=== PATIENT | male | born 1955 | race Caucasian/White ===

== ENCOUNTER → 2018-08-18 09:48 | Outpatient (CLI) | payer MEDICAID, SELFPAY ==
--- NOTE | 2018-08-18 09:53 | XR_ITS ---
XR shoulder RT min 2V HISTORY: ITS.REASON: Right SHOULDER AND ARM PAIN ORDERING PHYSICIAN: Danyel Chapa PATIENT AGE: 62 years Comparison: None FINDINGS: Mild osteoarthritic changes are present at the glenohumeral joint. Subchondral cystic changes are present within the glenoid. No fracture or dislocation. No lytic or blastic change. IMPRESSION: Mild osteoarthritis of the glenohumeral joint
--- NOTE | 2018-08-18 09:53 | XR_ITS ---
EXAM: XR cervical spine 5V HISTORY: Right neck and shoulder pain ITS.REASON: RT SHOULDER AND ARM PAIN ORDERING PHYSICIAN: Danyel Chapa PATIENT AGE: 62 years COMPARISON: None FINDINGS: Degenerative disc disease is present at C5-C6 with small endplate osteophytes. Mild foraminal narrowing is present bilaterally at C5-C6. No fracture or dislocation. No lytic or blastic change. IMPRESSION: Degenerative changes as described above
== END ==
PROVIDERS: PCP Internal Medicine; Visit Provider Internal Medicine
DX: M25.511 Pain in right shoulder (principal); M79.621 Pain in right upper arm
CPT/HCPCS: 72050; 73030

== ENCOUNTER 2019-11-30 08:55 | Emergency (ER) | payer OTHER, SELFPAY ==
[2019-11-30 08:55] VITALS: BP 160/74; PULSE 65; RESP 17; TEMP 36.4; O2SAT 100; BMI 32.1
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
--- NOTE | 2019-11-30 09:00 | PC.NURSE ---
at bedside assessing pt, removed ccollar
--- NOTE | 2019-11-30 09:04 | PC.NURSE ---
Pt to rad.
--- NOTE | 2019-11-30 09:09 | PC.NURSE ---
Pt returned from rad.
--- NOTE | 2019-11-30 09:11 | PC.NURSE ---
[facility] at bedside at this time.
[2019-11-30 09:53] VITALS: BP 132/71; PULSE 60; O2SAT 99
[2019-11-30 10:08] VITALS: BP 146/100; PULSE 77; RESP 17; TEMP 36.7; O2SAT 100
[2019-11-30 10:09] VITALS: BP 131/68; PULSE 66; O2SAT 98
== END 2019-11-30 10:25 | disposition home or self-care (01) ==
PROVIDERS: Emergency Provider Emergency Medicine; PCP Internal Medicine
DX: S20.212A Contusion of left front wall of thorax, initial encounter (principal); S20.211A Contusion of right front wall of thorax, initial encounter; V43.52XA Car driver injured in collision with other type car in traffic accident, initial encounter; Y92.488 Other paved roadways as the place of occurrence of the external cause
CPT/HCPCS: 71046; 99282

== ENCOUNTER 2020-01-23 16:52 | Emergency (ER) | payer OTHER, SELFPAY ==
[2020-01-23 17:13] VITALS: BP 130/65; PULSE 63; RESP 18; TEMP 36.6; O2SAT 99; BMI 31.8
[2020-01-23 17:19] VITALS: BP 130/65; PULSE 63; RESP 18; TEMP 36.6; O2SAT 99; BMI 31.8
--- NOTE | 2020-01-23 17:36 | HMH.EDUTC ---
[facility] [place] Disposition Clinical Impression: Sinusitis Qualifiers: Sinusitis location: maxillary Chronicity: acute Recurrence: non-recurrent Qualified Code(s): J01.00 - Acute maxillary sinusitis, unspecified Disposition: Home, Self-Care Condition on Discharge: Good Instructions: DI for Sinusitis, Sinusitis Additional Instructions: Start antibiotic patient to take as ordered for a full length of time even if you feel better. Sinus infections do not get better overnight. It may take 2-3 days to notice much improvement so be sure to use conservative measures as discussed for symptoms. Flonase 1 spray each nostril daily to help with nasal congestion, sinus and ear pressure/information Increase fluids Humidifier/vaporizer as needed Tylenol and ibuprofen as needed for fever or pain. If symptoms do not improve or get worse return or be seen in the ER Follow-up with primary care this week Prescriptions: Fluticasone Propionate [Flonase 50mcg nasal spray 16gm] 1 spr NS DAILY 14 Days #1 bottle Prescription Printed Azithromycin [Zithromax 250mg tab] 250 mg PO DIRECTED #6 tab Prescription Printed Referrals: Danyel Chapa [Primary Care Provider] - Time of Disposition: 18:29 Medical Decision Making - El Inquiry Pt receiving controlled substance: No Vital Signs: 01/23/20 17:13 01/23/20 17:19 Temperature 97.9 F 97.9 F Temperature Source Oral Oral Pulse Rate [Left Radial] 63 63 Respiratory Rate 18 18 Blood Pressure [Left Arm] 130/65 130/65 Blood Pressure Mean [Left Arm] 86 86 Blood Pressure Source [Left Arm] Automatic Cuff Automatic Cuff Blood Pressure Position [Left Arm] Sitting Sitting 02 Sat by Pulse Oximetry 99 99 Oxygen Delivery Method Room Air Room Air Orders (Tests/Meds): ORDERS Category Date Time Status Covid-19 Nasal PCR ([facility]) Routine Lab 01/23/20 17:30 Received [facility] [place] HPI - General Chief complaint: [facility] Stated complaint: Sore throat, congstion, weakness Time Seen by Provider: 01/23/20 17:36 Mode of Arrival: Ambulatory Source of Information: Patient Limitations: No Limitations Description of Symptoms (Recalled from Triage Doc. by RN): PATIENT C/O CONGESTION, SORE THROAT AND NASAL DRAINAGE HEENT Symptoms (Recalled from RN notes): Yes Resp Symptoms (Recalled from RN notes): No Skin Symptoms (Recalled from RN notes): No MS Symptoms (Recalled from RN notes): No Functional Status (Recalled from RN notes): WNL - History of Present Illness Provider Complaint: 64 yr old male presents for sinus pressure, sinus congestion, cough and green nasal drainage for 4 days - Related Data Home Medications Medication Instructions Recorded Confirmed Metformin HCl 500 mg PO BID 03/02/18 11/20/18 Aspirin [Aspirin 81mg chewable 81 mg PO DAILY 11/15/18 11/20/18 tab] Atorvastatin Calcium [Atorvastatin 20 mg PO HS 11/15/18 11/20/18 20mg Tab] lisinopriL [Lisinopril 10mg Tab] 10 mg PO DAILY 11/15/18 11/20/18 paroxetine HCl 20 mg tablet 20 mg PO DAILY 11/20/18 11/20/18 tamsulosin 0.4 mg capsule 0.4 mg PO DAILY 11/20/18 11/20/18 Previous Rx's Medication Instructions Recorded Azithromycin [Zithromax 250mg 250 mg PO DIRECTED #6 tab 01/23/20 tab] Fluticasone Propionate [Flonase 1 spr NS DAILY 14 Days #1 bottle 01/23/20 50mcg nasal spray 16gm] Allergies Allergy/AdvReac Type Severity Reaction Status Date / Time Penicillins Allergy Verified 11/20/18 10:09 - Worker's Comp Is this a Worker's Comp case?: No [facility] History - Hepatitis A Screen Drug use history?: No High risk sexual behaviors?: No History of sexually transmitted infection?: No Currently employed?: No Childcare worker?: No Do you have indoor plumbing?: Yes Do you have electricity?: Yes Attestation statement:: This patient has been screened for Hepatitis A risk factors. I have reviewed the patient's past medical history: Yes Medical History: Reports:: Diabetes Mellitus Type 2, Hyperli
[2020-01-23 18:10] VITALS: BP 130/65; PULSE 63; RESP 18; TEMP 36.6; O2SAT 99
[2020-01-26 09:14] LABS: UTC Strep Screen (Rapid) Negative (Negative)
== END 2020-01-23 18:31 | disposition home or self-care (01) ==
PROVIDERS: Emergency Provider Nurse Practitioner Family; PCP Internal Medicine
DX: J01.00 Acute maxillary sinusitis, unspecified (principal); Z20.828 Contact with and (suspected) exposure to other viral communicable diseases; E11.9 Type 2 diabetes mellitus without complications; I10 Essential (primary) hypertension; E78.5 Hyperlipidemia, unspecified; Z79.899 Other long term (current) drug therapy
CPT/HCPCS: 87880; 99202; U0003

== ENCOUNTER 2020-04-11 09:46 | Emergency (ER) | payer OTHER, SELFPAY ==
[2020-04-11 09:47] VITALS: BP 157/94; PULSE 77; RESP 16; TEMP 37.4; O2SAT 96; BMI 31.5
--- NOTE | 2020-04-11 09:54 | ECG_ITS ---
APPROVED REPORT Exam: Resting ECG HR:71 bpm ECG Measurements Heart Rate 71 AXES WA 148 P 20 QRSd 82 QRS 7 QT 378 T 41 QTc 410 Conclusion Normal sinus rhythm Normal ECG Electronically signed by : Khris Thayer, 04/12/2020 19:57:55
[2020-04-11 10:00] VITALS: BP 175/91; PULSE 70; RESP 16; O2SAT 97
--- NOTE | 2020-04-11 10:04 | XR_ITS ---
PROCEDURE: XR CHEST PORTABLE CLINICAL HISTORY: WEAKNESS COMPARISON: CR CXR2V XR chest 2V from 03/02/2018 CR CXR2V XR chest 2V from 03/02/2018 CR XR CHEST 2V from 11/30/2019 FINDINGS: The cardiomediastinal silhouette and pulmonary vascularity are within normal limits. This is a slightly poor inspiration however there are subtle ill-defined hazy opacities in both perihilar regions and lower lobes which were not seen on previous chest film 11/30/2019. Minimal developing pneumonic infiltrates cannot be excluded there is no pleural fluid. There monitor lines overlying the chest. IMPRESSION: Question developing minimal bilateral perihilar and lower lobe hazy pneumonic infiltrates and certainly Covid 19 is a possibility Dictated by: Dr. Kilo Steve MD 04/11/2020 10:42 Dr. Kilo Steve MD in [place] 04/11/2020 10:42
--- NOTE | 2020-04-11 10:29 | HMH.EDGENADL ---
ED Disposition Clinical Impression: Pneumonia due to COVID-19 virus Disposition: Home, Self-Care Condition on Discharge: Good Additional Instructions: Contact your primary care today to provide and establish follow-up for 2 days reevaluation via telehealth. Monitor pulse oximetry at home and use Tylenol and ibuprofen for body aches and fever. Use the Zofran as needed for nausea and finish the steroids as prescribed. Prescriptions: dexAMETHasone [Dexamethasone] 6 mg PO DAILY 3 Days #3 tab Transmission Status: Pending to [id number] Ondansetron [Zofran 4mg ODT] 4 mg PO TIDP PRN 3 Days #9 tab PRN Reason: Nausea Transmission Status: Pending to [id number] Referrals: Danyel Chapa [Primary Care Provider] - Time of Disposition: 11:27 - Critical Care Critical Care Time: No Attestation: On 04/11/20, the high probability of a clinically significant, sudden or life threatening deterioration of the following system(s) required my full and direct attention, intervention and personal management. The time I documented below is in addition to time spent performing reported procedures but includes the following listed in this critical care notation. Medical Decision Making - Medical Records Medical records reviewed: Yes: I reviewed the patient's medical records. - El Inquiry Pt receiving controlled substance: No Vital Signs: 04/11/20 09:47 04/11/20 10:00 04/11/20 10:30 Temperature 99.3 F Temperature Source Oral Pulse Rate [Radial] 77 70 73 Respiratory Rate 16 16 18 Blood Pressure [Right Arm] 157/94 H 175/91 H 145/87 H Blood Pressure Mean [Right Arm] 115 119 106 Blood Pressure Source [Right Arm] Automatic Cuff Automatic Cuff Blood Pressure Position [Right Arm] Sitting Sitting Sitting 02 Sat by Pulse Oximetry 96 97 95 Oxygen Delivery Method Room Air Room Air Room Air - Lab Data Lab Results 04/11/20 10:06: WBC 3.2 L, RBC 5.35, Hgb 16.7, Hct 48.9, MCV 91.5, MCH 31.2, MCHC 34.2, RDW 13.4, Plt Count 91 L, MPV 8.4, Neut % (Auto) 72.0, Lymph % (Auto) 20.7, [place] % (Auto) 6.6, Eos % (Auto) 0.2, Baso % (Auto) 0.4, Neut # (Auto) 2.3, Lymph # (Auto) 0.7, [place] # (Auto) 0.2, Eos # (Auto) 0.0, Baso # (Auto) 0.0 04/11/20 10:06: Sodium 132 L, Potassium 4.1, Chloride 96 L, Carbon Dioxide 26, Anion Gap 14.1, BUN 15, Creatinine 0.70, Estimated Creat Clear 108, Estimated GFR 114, Est GFR ( Amer) 137, Glucose 186 H, Calcium 9.8, Total Bilirubin 1.2, AST 62 H, ALT 59, Alkaline Phosphatase 134 H, Total Protein 8.1, Albumin 4.4, Globulin 3.7 H, Albumin/Globulin Ratio 1.2 04/11/20 10:06: SARS-CoV-2 IgG Ab (Rapid) Positive A, SARS-CoV-2 IgM Ab (Rapid) Positive A 04/11/20 10:06: Troponin I < 0.01 04/11/20 10:37: Urine Color Yellow, Urine Appearance Clear, Urine pH 6.0, Ur Specific [place] 1.015, Urine Protein Negative, Urine Glucose (UA) 3+, Urine Ketones 1+, Urine Blood Negative, Urine Nitrate Negative, Urine Bilirubin Negative, Urine Urobilinogen 1.0, Ur Leukocyte Esterase Negative, Urine WBC 3-5, Ur Squamous Epith Cells 3-5 Result diagrams: 04/11/20 10:06 04/11/20 10:06 Orders (Tests/Meds): ED MEDICATIONS Generic Name Dose Route Start Last Admin Trade Name Freq PRN Reason Stop Dose Admin Lactated Ringer's 500 mls @ 999 mls/hr 04/11/20 10:30 04/11/20 10:35 Lactated Ringer's 1000 Ml Bag IV 04/11/20 11:00 999 mls/hr .Q31M LILLI Administration ORDERS Category Date Time Status Covid-19 Nasal PCR Sendout P&C Stat Lab 04/11/20 11:00 Received Troponin I Q3H Lab 04/11/20 13:30 Ordered Troponin I Q3H Lab 04/11/20 16:30 Ordered - Radiology Data #1 Image(s): Chest Image Reviewed: Yes I reviewed the patient's radiology image Preliminary Findings: Abnormal Diffuse interstitial infiltrates worse in the lower airways consistent with viral/atypical pneumonia. No bony abnormality or pneumothorax. - ECG Data Tracing #1 I reviewed this ECG and interpreted as documented
[2020-04-11 10:30] VITALS: BP 145/87; PULSE 73; RESP 18; O2SAT 95
[2020-04-11 10:30] LABS: Chloride 96 mmol/L (98-107); Potassium 4.1 mmoL/L (3.5-5.1); Sodium 132 mmol/L (136-145)
[2020-04-11 10:32] LABS: Alanine Aminotransferase 59 U/L (12-78); Alkaline Phosphatase 134 U/L (38-126); Aspartate Amino Transferase 62 U/L (17-59); Basophils % 0.4 % (0.1-2.0); Bilirubin,Total 1.2 mg/dl (0.2-1.3); Blood Urea Nitrogen 15 mg/dl (9-20); Creatinine Clearance Estimated 108 mL/min (50-200); Eosinophils % 0.2 % (0.1-12.0); Estimated Glomerular Filt Rate 114 ml/min (>60); GFR (African American) 137 ML/MIN (>60); Hematocrit 48.9 % (42.0-52.0); Hemoglobin 16.7 g/dL (14.1-18.0); Lymphocytes # 0.7 K/mm3 (0.7-4.5); Lymphocytes % 20.7 % (10-50); Mean Corpuscular HGB Conc 34.2 g/dL (31.8-35.4); Mean Corpuscular Hemoglobin 31.2 pg (27.0-31.2); Mean Corpuscular Volume 91.5 fl (80-94); Mean Platelet Volume 8.4 fl (7.4-10.4); Monocytes # 0.2 K/mm3 (0.1-1.0); Monocytes % 6.6 % (1.7-9.3); Neutrophils # 2.3 K/mm3 (1.8-7.8); Platelet Count 91 K/mm3 (142-424); Red Blood Count 5.35 M/mm3 (4.60-6.20); Red Cell Distribution Width 13.4 % (11.5-17.5); White Blood Count 3.2 K/mm3 (4.8-10.8)
[2020-04-11 10:33] LABS: Albumin Level 4.4 g/dl (3.5-5.0); Albumin/Globulin Ratio 1.2 (1.1-1.8); Anion Gap 14.1 mEq/L (5-15); Calcium 9.8 mg/dl (8.4-10.2); Carbon Dioxide 26 mmol/L (22.0-30.0); Globulin 3.7 g/dL (1.3-3.2); Glucose 186 mg/dl (74-100); Total Protein,Serum 8.1 g/dl (6.3-8.2)
[2020-04-11 10:55] LABS: Microscopic, Urine URINE MICROSCOPIC (MICROSCOPIC)
[2020-04-11 10:57] LABS: Coronavirus 19 IgG Antibody Positive (Negative); Coronavirus 19 IgM Antibody Positive (Negative)
[2020-04-11 10:57] LABS: Appearance,Urine CLEAR (Clear); Bilirubin,Urine Negative (Negative); Blood, Urine Negative (Negative); Color,Urine YELLOW (Yellow); Glucose,Urine (UA) 3+ (Negative); Ketones,Urine 1+ (Negative); Leukocyte Esterase,Urine Negative (Negative); Nitrate,Urine Negative (Negative); Protein,Urine Negative (Negative); Specific Gravity, Urine 1.015 (1.005-1.030)
[2020-04-11 11:00] VITALS: BP 155/97; PULSE 66; RESP 17; O2SAT 87
[2020-04-11 11:03] LABS: Troponin I < 0.01 ng/ml (0.00-0.034)
[2020-04-11 11:30] VITALS: BP 148/92; PULSE 66; RESP 16; O2SAT 87
[2020-04-11 12:03] VITALS: BP 142/78; PULSE 78; RESP 16; TEMP 36.6; O2SAT 98
[2020-04-12 09:11] LABS: Covid-19 Nasal PCR Sendout P&C POSITIVE
== END 2020-04-11 12:04 | disposition home or self-care (01) ==
PROVIDERS: Emergency Provider Student in an Organized Health Care Education/Training Program; PCP Internal Medicine
DX: U07.1 COVID-19 (principal); J12.89 Other viral pneumonia; E11.9 Type 2 diabetes mellitus without complications; E78.5 Hyperlipidemia, unspecified; I10 Essential (primary) hypertension; Z88.0 Allergy status to penicillin; Z79.84 Long term (current) use of oral hypoglycemic drugs
CPT/HCPCS: 71045; 80053; 81001; 84484; 85025; 86328; 93005; 96365; 99284; U0004

== ENCOUNTER 2020-04-13 10:54 | Outpatient (CLI) | payer OTHER, SELFPAY ==
[2020-04-13] VITALS (10 sets, daily range): BP systolic 128–151; BP diastolic 80–86; PULSE 57–67; RESP 16; TEMP 36.3–37.1; O2SAT 97–98
--- NOTE | 2020-04-13 14:27 | PC.NURSE ---
tolerated infusion well. left in stable condition
== END 2020-04-13 14:37 | disposition home or self-care (01) ==
PROVIDERS: PCP Internal Medicine; Visit Provider Internal Medicine
DX: U07.1 COVID-19 (principal)
CPT/HCPCS: 96365

== ENCOUNTER 2020-04-30 11:24 | Emergency (ER) | payer OTHER, SELFPAY ==
[2020-04-30 11:25] VITALS: BP 169/94; PULSE 72; RESP 16; TEMP 36.7; O2SAT 97; BMI 30.7
--- NOTE | 2020-04-30 12:11 | HMH.EDGENADL ---
ED Disposition Clinical Impression: Lumbago Disposition: Home, Self-Care Condition on Discharge: Good Additional Instructions: You were seen on an emergency basis. It is very important that you follow up with your primary care provider and/or specialist as we discussed within 2 days. All labs and imaging were obtained and interpreted here to rule out life threatening emergencies, but your final results should be reviewed by your primary doctor at your follow up appointment. Please return to the emergency department if any of your symptoms worsen, or if they do not improve as we discussed. Referrals: Danyel Chapa [Primary Care Provider] - - Critical Care Critical Care Time: No Attestation: On 04/30/20, the high probability of a clinically significant, sudden or life threatening deterioration of the following system(s) required my full and direct attention, intervention and personal management. The time I documented below is in addition to time spent performing reported procedures but includes the following listed in this critical care notation. Medical Decision Making - Medical Records Medical records reviewed: Yes: I reviewed the patient's medical records. - El Inquiry Pt receiving controlled substance: No Vital Signs: 04/30/20 11:25 Temperature 98.1 F Temperature Source Oral Pulse Rate [Right] 72 Respiratory Rate 16 Blood Pressure [Right Arm] 169/94 H Blood Pressure Mean [Right Arm] 119 Blood Pressure Source [Right Arm] Automatic Cuff Blood Pressure Position [Right Arm] Sitting 02 Sat by Pulse Oximetry 97 Oxygen Delivery Method Room Air Orders (Tests/Meds): ED MEDICATIONS Generic Name Dose Route Start Last Admin Trade Name Freq PRN Reason Stop Dose Admin Methocarbamol 500 mg 04/30/20 21:00 04/30/20 12:29 Methocarbamol 500mg Tablet PO 05/30/20 20:59 500 mg BID LILLI Administration Discontinued Medications Generic Name Dose Route Start Last Admin Trade Name Freq PRN Reason Stop Dose Admin Hydrocodone Bitart/Acetaminophen 1 tab 04/30/20 11:34 04/30/20 12:29 Hydrocodone/Apap 5/325 Mg Tablet PO 04/30/20 11:35 1 tab ONCE ONE Administration Medical Decision Narrative: 64-year-old male presenting with acute back pain after lifting a refrigerator. Nonfocal, neuro intact, atraumatic. Full weightbearing and ambulating at baseline. No cauda equina red flags. No infectious signs or symptoms. Symptoms resolved after [place] and Robaxin here. Patient will take NSAIDs at home for pain control and follow-up with PCP. He is anxious to go home. He has been ambulating around the emergency department at baseline on his cell phone and appears to be pain-free and states that he is as well. No further work-up indicated here including imaging today General Adult HPI - General Chief complaint: PAIN Stated complaint: ao 04/30 back pain Time Seen by Provider: 04/30/20 11:30 Mode of Arrival: Ambulatory Limitations: No Limitations Description of Symptoms (Recalled from ER Triage Doc. by RN): PT was lifting a fridge when he felt a pop in his lower back. Advises he is now having pain - History of Present Illness HPI narrative: This is a 64-year-old male with a history of hypertension who presents 20 minutes after sustaining right low back pain when attempting to lift a refrigerator. He reports the pain is localized and spastic. He did not take any medication for this. He remained ambulatory and full weightbearing. No other injury sustained. Nothing makes the pain worse. No fever, chills, nausea, vomiting, urinary symptoms, loss of bowel or bladder, saddle anesthesia - Related Data Home Medications Medication Instructions Recorded Confirmed Metformin HCl 500 mg PO BID 03/02/18 11/20/18 Aspirin [Aspirin 81mg chewable 81 mg PO DAILY 11/15/18 11/20/18 tab] Atorvastatin Calcium [Atorvastatin 20 mg PO HS 11/15/18 11/20/18 20mg Tab] lisinopriL [Lisinopril 10mg T
[2020-04-30 13:26] VITALS: BP 151/80; PULSE 67; RESP 16; TEMP 36.9; O2SAT 96
== END 2020-04-30 13:28 | disposition home or self-care (01) ==
PROVIDERS: Emergency Provider Physician Assistant; PCP Internal Medicine
DX: M54.5 Low back pain (principal); X50.0XXA Overexertion from strenuous movement or load, initial encounter; Y92.019 Unspecified place in single-family (private) house as the place of occurrence of the external cause; I10 Essential (primary) hypertension; E78.5 Hyperlipidemia, unspecified; E11.9 Type 2 diabetes mellitus without complications; Z79.899 Other long term (current) drug therapy; Z88.0 Allergy status to penicillin
CPT/HCPCS: 99281

== ENCOUNTER → 2020-05-11 10:30 | Outpatient (CLI) | payer OTHER, SELFPAY ==
--- NOTE | 2020-05-11 10:41 | XR_ITS ---
PROCEDURE: XR LUMBAR SPINE MIN 4V CLINICAL INDICATION: LOW BACK PAIN COMPARISON: CT [id number] CT abdomen pelvis wo/w con from 11/15/2018 CR XR CHEST 2V from 11/30/2019 FINDINGS: There is normal alignment. There is moderate anterior wedging of L1 with loss of height anteriorly of approximately 50 percent. This has developed since a previous lateral chest radiograph of 11/30/2019. Degenerative disc disease is present at T12-L1 L1-L2 L2-L3 and L5-S1. There is generalized osteopenia. There are mild degenerative changes in the SI joints. Other findings:None. IMPRESSION: 50 percent wedge compression change of L1 which has developed since 11/30/2019 with underlying degenerative changes Dictated by: Fernando Shoemaker MD 05/11/2020 11:33 Fernando Shoemaker MD in [place] 05/11/2020 11:33
== END ==
PROVIDERS: PCP Internal Medicine; Visit Provider Internal Medicine
DX: M54.5 Low back pain (principal)
CPT/HCPCS: 72110

== ENCOUNTER → 2020-05-23 15:08 | Outpatient (CLI) | payer OTHER, SELFPAY ==
--- NOTE | 2020-05-23 15:18 | MR_ITS ---
PROCEDURE: MR LUMBAR SPINE WO CON CLINICAL INDICATION: LOW BACK PAIN HEARD A POP X3WKS AGO WHILE LIFTING A REFRIGERATOR AND HAS HAD RT SIDED LBP SINCE. PRIOR X-RAY 05-11-20 COMPARISON: CT [id number] CT abdomen pelvis wo/w con from 11/15/2018 CR XR LUMBAR SPINE MIN 4V from 05/11/2020 TECHNIQUE: Standard multiplanar multiecho sequences are performed without contrast. 3-D MIP and myelographic images are also rendered and reviewed FINDINGS: T12-L1: Acute wedge compression fracture is present involving the L1 vertebral body. There is minimal retropulsion along the posterior superior aspect L1 by approximately 3 mm. There is loss of height centrally and anteriorly by approximately 40 percent. The L1-L2: Mild degenerative disc disease with minimal bulging disc. L2-L3: Mild degenerative disc disease with minimal bulging disc. L3-L4: Small annular fissure posteriorly. Mild facet and ligamentum hypertrophy with mild right lateral recess narrowing. L4-5: Minimal bulging disc with facet and ligamentum hypertrophy with mild bilateral lateral recess narrowing slightly greater on the right. L5-S1: Mild concentric bulging disc with a small broad-based central/left paracentral and foraminal disc protrusion along with facet and ligamentum hypertrophy with severe right-sided foraminal narrowing and mild left-sided foraminal narrowing. IMPRESSION: 1. Acute wedge compression fracture of L1 with loss of height anteriorly of approximately 40 percent and minimal retropulsion of the posterior superior aspect of L1. 2. Mild multilevel lumbar spondylosis with degenerative disc disease bulging disc and facet and ligamentum hypertrophy with lateral recess and foraminal narrowing. There is a small broad-based central/left paracentral disc protrusion at L5-S1. Please see above for detailed description at each level. Dictated by: Fernando Shoemaker MD 05/24/2020 12:11 Fernando Shoemaker MD in [place] 05/24/2020 12:11
== END ==
PROVIDERS: PCP Internal Medicine; Visit Provider Internal Medicine
DX: M54.5 Low back pain (principal)
CPT/HCPCS: 72148; 76376

== ENCOUNTER → 2020-05-30 08:50 | Outpatient (POV) | payer OTHER, SELFPAY ==
[2020-05-30 09:27] VITALS: BP 142/77; PULSE 85; RESP 18; TEMP 36.8; O2SAT 98; BMI 24.5
--- NOTE | 2020-05-30 09:49 | HMH.PMCON ---
Assessment and Plan (1) Back pain Status: Chronic Qualifiers: Back pain location: low back pain Category: Medical Code(s): M54.9 - Dorsalgia, unspecified (2) Compression fracture Status: Acute Category: Medical (3) Osteoporosis Status: Chronic Qualifiers: Presence of current pathological fracture: with current pathological fracture Category: Medical Code(s): M81.0 - Age-related osteoporosis without current pathological fracture - Assessment and plan all Dx Assessment and Plan for all problems:: Patient was fitted for a back brace. We will set him up for kyphoplasty to help with his fracture and his pain. I discussed the procedure with him and explained that he would like to move forward. He has been instructed to call the office if he has any issues prior to his next appointment. Dr. Moran has reviewed this note and agrees with this plan of care. This note was dictated using voice recognition software and may contain errors or omissions HPI - Data of Consult Consult date: 05/30/20 Requesting Physician: Kalani Eagle APRN Primary Care Provider: Danyel Chapa - Consult Narrative Reason for consult: Compression fracture History of present illness: Mr. Rey is a 64 year old male who presents today for consultation in regards to his recent compression fracture. Patient had increased back pain about a month ago. Patient felt a pop in his lower back at this time. Patient has a acute L1 compression fracture. Patient is interested in a kyphoplasty. Patient has quite a bit of pain. He has tried medications with no relief. He is not on any anticoagulation therapy. He has a history of osteoporosis. He rates his pain today 4 out of 10 when he is not active but it can increase With activity CC: Kalani Eagle APRN [facility] History I have reviewed the patient's past medical history: Yes Medical History: Reports:: Diabetes Mellitus Type 1, Hyperlipidemia, Hypertension Denies:: Cancer, Diabetes Mellitus Type 2, MRSA *Have you ever received a pneumonia vaccine?: Yes *Have you received a flu vaccine this season?: No Other Medical History: Reports: Arthritis Amputation: No Fractures: No - *Social History Smoking Status: Never smoker Tobacco Type: cigarettes Alcohol Intake: never Substance Use Type: denies use *Occupational Status:: retired Housing: house Household Members: other *Travel in the last 8 weeks: None Family Hx:: Unable to obtain Review of Systems - Review of Systems ROS General: no recent weight change, no fever, no sleep disturbances Respiratory: no cough, no shortness of air, no recurring pulmonary infections Cardiovascular/Peripheral Vascular: No chest pain, No palpitations, no edema, no shortness of breath. Gastrointestinal: no new onset incontinence, normal bowel movements reported Genitourinary: no new onset incontinence Musculoskeletal: Back pain Psychiatric: normal mood/ affect Neurological: [denies new onset weakness in extremities], [denies new onset balance issues] Meds Home Medications Medication Instructions Recorded Confirmed Type Metformin HCl 500 mg PO BID 03/02/18 11/20/18 History Aspirin [Aspirin 81mg chewable 81 mg PO DAILY 11/15/18 11/20/18 History tab] Atorvastatin Calcium [Atorvastatin 20 mg PO HS 11/15/18 11/20/18 History 20mg Tab] lisinopriL [Lisinopril 10mg Tab] 10 mg PO DAILY 11/15/18 11/20/18 History paroxetine HCl 20 mg tablet 20 mg PO DAILY 11/20/18 11/20/18 History tamsulosin 0.4 mg capsule 0.4 mg PO DAILY 11/20/18 11/20/18 History Azithromycin [Zithromax 250mg 250 mg PO DIRECTED #6 tab 01/23/20 Rx tab] Fluticasone Propionate [Flonase 1 spr NS DAILY 14 Days #1 bottle 01/23/20 Rx 50mcg nasal spray 16gm] Ondansetron [Zofran 4mg ODT] 4 mg PO TIDP PRN 3 Days #9 tab 04/11/20 Rx dexAMETHasone [Dexamethasone] 6 mg PO DAILY 3 Days #3 tab 04/11/20 Rx Allergies Allergy/AdvReac Typ
== END ==
PROVIDERS: PCP Internal Medicine; Visit Provider Clinical Nurse Specialist Family Health
DX: M80.88XA Other osteoporosis with current pathological fracture, vertebra(e), initial encounter for fracture
CPT/HCPCS: 99202; G0463

== ENCOUNTER → 2020-06-08 10:47 | Outpatient (CLI) | payer OTHER, SELFPAY ==
[2020-06-08 12:06] LABS: Basophils % 0.2 % (0.1-2.0); Eosinophils # 0.1 K/mm3 (0.0-0.4); Eosinophils % 1.5 % (0.1-12.0); Hematocrit 45.5 % (42.0-52.0); Hemoglobin 15.1 g/dL (14.1-18.0); Lymphocytes % 25.3 % (10-50); Mean Corpuscular HGB Conc 33.1 g/dL (31.8-35.4); Mean Corpuscular Hemoglobin 31.1 pg (27.0-31.2); Mean Corpuscular Volume 93.9 fl (80-94); Mean Platelet Volume 7.8 fl (7.4-10.4); Monocytes # 0.2 K/mm3 (0.1-1.0); Monocytes % 5.6 % (1.7-9.3); Neutrophils # 2.8 K/mm3 (1.8-7.8); Neutrophils % 67.4 % (37.0-80.0); Platelet Count 104 K/mm3 (142-424); Red Blood Count 4.85 M/mm3 (4.60-6.20); Red Cell Distribution Width 14.3 % (11.5-17.5); White Blood Count 4.1 K/mm3 (4.8-10.8)
[2020-06-08 12:26] LABS: Chloride 101 mmol/L (98-107); Potassium 4.4 mmoL/L (3.5-5.1); Sodium 136 mmol/L (136-145)
[2020-06-08 12:29] LABS: Anion Gap 13.4 mEq/L (5-15); Blood Urea Nitrogen 20 mg/dl (9-20); Carbon Dioxide 26 mmol/L (22.0-30.0); Estimated Glomerular Filt Rate 114 ml/min (>60); GFR (African American) 137 ML/MIN (>60)
[2020-06-08 12:30] LABS: Calcium 9.5 mg/dl (8.4-10.2); Glucose 283 mg/dl (74-100)
[2020-06-08 12:48] LABS: Coronavirus 19 IgG Antibody Positive (Negative); Coronavirus 19 IgM Antibody Negative (Negative)
== END ==
PROVIDERS: Visit Provider Anesthesiology
DX: Z01.818 Encounter for other preprocedural examination (principal); Z20.822 Contact with and (suspected) exposure to COVID-19; Z86.16 Personal history of COVID-19; M54.5 Low back pain; M48.56XA Collapsed vertebra, not elsewhere classified, lumbar region, initial encounter for fracture
CPT/HCPCS: 36415; 80048; 85025; 86328

== ENCOUNTER 2020-06-10 10:45 | Day surgery (SDC) | payer OTHER, SELFPAY ==
[2020-06-02 10:10] VITALS: BMI 31.5
[2020-06-10 11:52] VITALS: BP 142/77; PULSE 61; RESP 16; TEMP 36.2; O2SAT 97
[2020-06-10 12:07] LABS: POC Glucose,Bedside 240 (70-110)
[2020-06-10 13:22] LABS: POC Glucose,Bedside 189 (70-110)
--- NOTE | 2020-06-10 15:15 | HMH.ANESCL ---
[facility] Anesthesia Checklist - Patient Identification Patient Identification: Arm Band - Structural Data Admitted From: Home Planned Operative Procedure/s: L1 Kyphoplasty Under Fluoroscopy Consent for Planned Operative Procedure(s) Verified: Yes Verified Documents: Surgical Consent, History and Physical - NPO Status Verified Time NPO: 00:00 - Additional verifications Anesthesia Reactions: No Hx Blood Transfusions: No Blood Transfusion Reaction: No - Airway Assessment C-Spine Mobility Assessed: Yes (mp2) TMJ Mobility Assessed: Yes Dentition: Good Dentition - Neurological Assessment Level of Consciousness: Awake, Alert - Anesthesia Plan Anesthesia Risk discussed: Yes Anesthesia Plan: Verified ASA Class: III Anesthesia Type: MAC [facility] History I have reviewed the patient's past medical history: Yes Medical History: Reports:: Diabetes Mellitus Type 2, Hyperlipidemia, Hypertension Denies:: Cancer, Diabetes Mellitus Type 1, Internal Pacemaker, MRSA, Seizures *Have you ever received a pneumonia vaccine?: No *Have you received a flu vaccine this season?: No Other Medical History: Reports: Arthritis. Denies: Blood Transfusion Reaction Anesthesia experience/problems:: nac Laterality Cases: Left: Other Other Surgeries: No: Pacemaker Amputation: No Fractures: No - *Social History Last grade of school completed: 9th or 10th Smoking Status: Never smoker Tobacco Type: cigarettes Alcohol Intake: never Substance Use Type: denies use *Occupational Status:: retired Housing: house Household Members: other *Travel in the last 8 weeks: None Family Hx:: Diabetes
[2020-06-10 15:45] VITALS: BP 124/70; PULSE 73; RESP 18; TEMP 36.3; O2SAT 97
--- NOTE | 2020-06-10 15:48 | P.OP_ITS ---
Date of procedure: 06/10/20 Pre-op Diagnosis:: L1 compression fracture Post-op Diagnosis:: Same Procedure performed:: L1 kyphoplasty Surgeon:: Joaquín Moran MD RIGGING ENGINEER:: Bill Bullard Anesthesia: MAC Estimated blood loss (mL): 5 Clinical Note:: Patient is a pleasant 64-year-old white male who has an acute L1 compression fracture. He does have osteoporosis. MRI does show acute wedge compression fracture of L1 with loss of height anteriorly of approximately 40% and minimal retropulsion of the posterior aspect. He has failed all conservative therapy including bracing and oral medications. He presents for L1 kyphoplasty today. Operative findings:: None Operative note:: Informed consent was obtained and risks and benefits of the procedure was explained to the patient. Patient was taken to the OR and was placed prone on the procedure table. The patient was prepped and draped in sterile fashion. I used 2 C arms for AP and lateral view of the L1 vertebral body. The skin and subcutaneous tissues were anesthetized using lidocaine. Bone access trochars were placed through the LEFT and RIGHT pedicle and advanced into the vertebral body. After accessing the vertebral body a balloon was inserted first on the LEFT side followed by the RIGHT side with approximately 3 mL of contrast placed in each balloon with good insufflation. After adequate spread of contrast through the balloon, the balloons were deflated and cement was introduced first on the LEFT side with placement of approximately 3-1/2 mL of cement with good spread throughout the vertebral body and then on the RIGHT side was approximately 3 1/2 mL cement with good spread throughout the vertebral body. There was no extrusion of cement through the lateral pompa, anterior or posterior pompa. Also no extrusion through superior or inferior pompa. The bone access trochars were removed and dressing was placed. The patient was taken back to recovery in stable condition. He had good resolution of her back pain 5 minutes after the procedure. He tolerated the procedure well with no complications and was discharged home neurologically intact. Patient was discharged home neurologically intact and with resolution of his pain symptoms. Plan and disposition: We will follow-up with him in 2 weeks will reevaluate symptoms at that time. He is to continue wearing his back brace. Condition: stable Disposition: PACU Complications:: None
[2020-06-10 15:55] VITALS: BP 130/75; PULSE 77; RESP 18; O2SAT 97
[2020-06-10 16:10] VITALS: BP 135/79; PULSE 69; RESP 18; O2SAT 95
== END 2020-06-10 16:13 | disposition home or self-care (01) ==
LOC: OR 10:47
PROVIDERS: PCP Internal Medicine; Visit Provider Anesthesiology
PROC: (CPT 22514; principal; 2020-06-10 13:15)
DX: M80.08XA Age-related osteoporosis with current pathological fracture, vertebra(e), initial encounter for fracture (principal); E11.9 Type 2 diabetes mellitus without complications; I10 Essential (primary) hypertension; E78.5 Hyperlipidemia, unspecified; M19.90 Unspecified osteoarthritis, unspecified site; Z83.3 Family history of diabetes mellitus; Z79.82 Long term (current) use of aspirin; Z79.899 Other long term (current) drug therapy; Z79.4 Long term (current) use of insulin
CPT/HCPCS: 22514; 82962; 96374; J3370

== ENCOUNTER → 2020-06-23 11:35 | Outpatient (POV) | payer OTHER, SELFPAY ==
[2020-06-23 11:54] VITALS: BP 145/84; PULSE 72; RESP 20; TEMP 36.4; O2SAT 96; BMI 31.4
--- NOTE | 2020-06-23 12:11 | P.CONS_ITS ---
[facility] Pain Management SOAP Note Subjective:: Pleasant 64-year-old white male who presents today for follow-up after L1 kyphoplasty. He rates his pain a 0 out of 10 overall doing extremely well and would like to return to work. Patient denies having any issues he is healed well. Patient I discussed bracing while lifting. We will follow-up with him on an as-needed basis. ROS General: no recent weight change, no fever, no sleep disturbances Respiratory: no cough, no shortness of air, no recurring pulmonary infections Cardiovascular/Peripheral Vascular: No chest pain, No palpitations, no edema, no shortness of breath. Gastrointestinal: no new onset incontinence, normal bowel movements reported Genitourinary: no new onset incontinence Musculoskeletal: Back pain, leg pain Psychiatric: normal mood/ affect Neurological: [denies new onset weakness in extremities], [denies new onset balance issues] Objective:: Physical Exam General: Alert and oriented x3, no acute distress, pleasant and cooperative, [on room air] Lungs: Resps E/U, Symmetrical chest expansion, Eyes: PERRL Musculoskeletal: Flexion and extension of lumbar spine somewhat guarded secondary to pain, deep tendon reflexes normal, strength in upper and lower extremities [5/5], normal gait noted Neurological: speech clear, skin washer equal, no gross sensory deficits Assessment:: Compression fracture status post kyphoplasty Plan:: Follow-up with the patient on an as-needed basis he has been instructed to call the office if he has any issues. Dr. Moran has reviewed this note and agrees with this plan of care. This note was dictated using voice recognition software and may contain errors or omissions [facility] History I have reviewed the patient's past medical history: Yes Medical History: Reports:: Diabetes Mellitus Type 2, Hyperlipidemia, Hypertension Denies:: Cancer, Diabetes Mellitus Type 1, Internal Pacemaker, MRSA, Seizures *Have you ever received a pneumonia vaccine?: No *Have you received a flu vaccine this season?: No Other Medical History: Reports: Arthritis. Denies: Blood Transfusion Reaction Laterality Cases: Left: Other Other Surgeries: No: Pacemaker Amputation: No Fractures: No - *Social History Smoking Status: Never smoker Tobacco Type: cigarettes Alcohol Intake: never Substance Use Type: denies use *Occupational Status:: other Housing: house Household Members: other *Travel in the last 8 weeks: None Family Hx:: Diabetes
== END ==
PROVIDERS: PCP Internal Medicine; Visit Provider Clinical Nurse Specialist Family Health
DX: M80.88XA Other osteoporosis with current pathological fracture, vertebra(e), initial encounter for fracture (principal); Z98.890 Other specified postprocedural states
CPT/HCPCS: 99212; G0463

== ENCOUNTER → 2020-06-27 13:38 | Outpatient (CLI) | payer OTHER, SELFPAY ==
--- NOTE | 2020-06-27 13:42 | XR_ITS ---
PROCEDURE: XR DEXA AXIAL SKELETON CLINICAL HISTORY: H/O L1 FX COMPARISON: No exams were available for comparison FINDINGS: The right hip BMD is 0.633 with a T-score of -2.2. The left hip BMD is 0.606 with a T-score of -2.4. The lumbar spine BMD is 0.918 with a T-score of -1.6. IMPRESSION: This patient is considered osteopenic according to the World Health Organization criteria. Bone density is between 10 and 25 percent below young normal. Fracture risk is moderate. Treatment is advised. Based on these results a follow-up exam is recommended in 2 year. Dictated by: Fernando Shoemaker MD 06/30/2020 08:02 Fernando Shoemaker MD in [place] 06/30/2020 08:02
== END ==
PROVIDERS: PCP Internal Medicine; Visit Provider Internal Medicine
DX: Z87.81 Personal history of (healed) traumatic fracture (principal)
CPT/HCPCS: 77080

== ENCOUNTER → 2020-09-21 11:25 | Outpatient (CLI) | payer MEDICARE, OTHER, SELFPAY ==
--- NOTE | 2020-09-21 11:43 | ECG_ITS ---
APPROVED REPORT Exam: Resting ECG HR:63 bpm ECG Measurements Heart Rate 63 AXES MD 148 P 2 QRSd 80 QRS -10 QT 388 T 51 QTc 397 Conclusion Normal sinus rhythm Normal ECG Electronically signed by : Danyel Chapa, 10/12/2020 11:19:20
== END ==
PROVIDERS: PCP Internal Medicine; Visit Provider Internal Medicine
DX: R07.89 Other chest pain (principal)
CPT/HCPCS: 93005

== ENCOUNTER → 2020-09-27 14:37 | Outpatient (CLI) | payer MEDICARE, OTHER, SELFPAY ==
--- NOTE | 2020-09-27 14:41 | XR_ITS ---
PROCEDURE: XR CERVICAL SPINE 5V CLINICAL INDICATION: Other spondylosis with radiculopathy, cervical region COMPARISON: No exams were available for comparison FINDINGS: Five views are obtained. Moderate to severe degenerative change of C5-6 with moderate degenerative changes C4-5 and C6-7. No acute fracture or subluxation. Odontoid and lateral masses of C1 are normal. No prevertebral soft tissue swelling. There is severe left C5-6 and moderate left C4-5 neural foraminal narrowing, with moderate right C5-6 and mild left C4-5 neural foraminal narrowing. Consider MRI cervical spine for further assessment of these findings. IMPRESSION: Moderate to severe degenerative changes of C5-6 and moderate degenerative change of C4-5 and C6-7. Bilateral neural foraminal encroachment as described most pronounced on the left at C5-6. Consider MRI cervical spine for further assessment of these findings. No acute fracture or subluxation. Dictated by: Rory Hernandez MD 09/28/2020 14:54 Rory Hernandez MD in [place] 09/28/2020 14:54
== END ==
PROVIDERS: PCP Internal Medicine; Visit Provider Internal Medicine
DX: M47.22 Other spondylosis with radiculopathy, cervical region (principal); R07.9 Chest pain, unspecified; M15.0 Primary generalized (osteo)arthritis
CPT/HCPCS: 72050

== ENCOUNTER → 2020-12-30 10:29 | Outpatient (CLI) | payer MEDICARE, OTHER, SELFPAY ==
--- NOTE | 2020-12-30 10:42 | XR_ITS ---
PROCEDURE: XR RIBS LT MIN 3V W CXR1V CLINICAL INDICATION: Pain following injury COMPARISON: CR CXR2V XR chest 2V from 03/02/2018 CR XR CHEST 2V from 11/30/2019 CR XR CHEST PORTABLE from 04/11/2020 FINDINGS: Frontal view of the chest shows no acute finding. Multiple views of the left ribs are obtained. Nondisplaced fractures are present involving the left 6th and 7th ribs laterally. No evidence of pneumothorax. There has been prior kyphoplasty at L1. IMPRESSION: Nondisplaced left 6th and 7th rib fractures Dictated by: Fernando Shoemaker MD 12/30/2020 11:18 Fernando Shoemaker MD in [place] 12/30/2020 11:18
== END ==
PROVIDERS: PCP Internal Medicine; Visit Provider Internal Medicine
DX: R07.89 Other chest pain (principal); W19.XXXA Unspecified fall, initial encounter
CPT/HCPCS: 71101

== ENCOUNTER 2021-10-18 19:32 | Emergency (ER) | payer MEDICARE, MEDICAID, SELFPAY ==
[2021-10-18 19:52] VITALS: BP 160/85; PULSE 88; RESP 17; TEMP 37.2; O2SAT 97; BMI 30.8
--- NOTE | 2021-10-18 20:11 | HMH.EDUTC ---
[facility] [place] Disposition Clinical Impression: Gastroenteritis Disposition: Home, Self-Care Condition on Discharge: Good Instructions: Viral Gastroenteritis, DI for Viral Gastroenteritis -- Adult, Ondansetron Additional Instructions: Drink plenty of fluids. Take tylenol for pain or fever. Take the medications as directed. Follow up with your regular doctor. GO TO THE ER FOR ANY WORSENING SYMPTOMS Prescriptions: Ondansetron [Zofran 4mg ODT] 4 mg PO Q8HP PRN #20 tab PRN Reason: Nausea Transmission Status: Received by [facility] Referrals: Lasha Castaneda MD [Primary Care Provider] - Time of Disposition: 20:13 Medical Decision Making - Medical Records Medical records reviewed: No: I reviewed the patient's medical records. - El Inquiry Pt receiving controlled substance: No Vital Signs: 10/18/21 19:52 10/18/21 20:15 Temperature 98.9 F 98.9 F Temperature Source Oral Pulse Rate 88 Pulse Rate [Left] 88 Respiratory Rate 17 17 Blood Pressure 160/85 H Blood Pressure [Right Arm] 160/85 H Blood Pressure Mean [Right Arm] 110 02 Sat by Pulse Oximetry 97 [facility] [place] HPI - General Stated complaint: stomach ache and diarrhea Time Seen by Provider: 10/18/21 20:11 Description of Symptoms (Recalled from Triage Doc. by RN): patient comes in with complaints of nausea ad diarrhea. symptoms began yesterday afternoon. HEENT Symptoms (Recalled from RN notes): No Resp Symptoms (Recalled from RN notes): No Skin Symptoms (Recalled from RN notes): No MS Symptoms (Recalled from RN notes): No Functional Status (Recalled from RN notes): wnl - History of Present Illness Provider Complaint: He states that since yesterday he has had n/v/d. He has not vomited today, but he has continued to have nausea and diarrhea. He denies abdominal pain. - Related Data Home Medications Medication Instructions Recorded Confirmed Metformin HCl 500 mg PO BID 03/02/18 06/23/20 Aspirin [Aspirin 81mg chewable 81 mg PO DAILY 11/15/18 06/23/20 tab] Atorvastatin Calcium [Atorvastatin 20 mg PO HS 11/15/18 06/23/20 20mg Tab] lisinopriL [Lisinopril 10mg Tab] 10 mg PO DAILY 11/15/18 06/23/20 paroxetine HCl 20 mg tablet 20 mg PO DAILY 11/20/18 06/23/20 tamsulosin 0.4 mg capsule 0.4 mg PO DAILY 11/20/18 06/23/20 cholecalciferol (vitamin D3) 50 50 mcg PO DAILY 09/28/20 mcg (2,000 unit) capsule meloxicam 7.5 mg tablet 7.5 mg PO BID tab 09/28/20 tizanidine 4 mg tablet 4 mg PO Q8H PRN tab 09/28/20 Previous Rx's Medication Instructions Recorded Ondansetron [Zofran 4mg ODT] 4 mg PO Q8HP PRN #20 tab 10/18/21 Allergies Allergy/AdvReac Type Severity Reaction Status Date / Time Penicillins Allergy Verified 10/18/21 19:54 - Worker's Comp Is this a Worker's Comp case?: No [facility] History - Hepatitis A Screen Attestation statement:: This patient has been screened for Hepatitis A risk factors. I have reviewed the patient's past medical history: Yes Medical History: Reports:: Diabetes Mellitus Type 2, Hyperlipidemia, Hypertension Denies:: Cancer, Diabetes Mellitus Type 1, Internal Pacemaker, MRSA, Seizures Other Medical History: Reports: Arthritis. Denies: Blood Transfusion Reaction Laterality Cases: Left: Other Other Surgeries: No: Pacemaker Amputation: No Fractures: No Comment: Back Sx - Social History Smoking Status: Never smoker Tobacco Type: cigarettes Alcohol Intake: never Substance Use Type: denies use Occupational Status: other Housing: house Household Members: other Family Hx:: Diabetes Comment: Mother-AFIB ROS Obtained: Yes All systems reviewed & no additional complaints - Constitutional Constitutional: Reports as per HPI - Eyes Eyes: Denies eye discharge - ENT Ears, Nose, Mouth, and Throat: Denies dizziness, Denies otalgia, Denies sore throat - Cardiovascular Cardiovascular: Denies chest pain - Respiratory Respiratory: Denies chest congestion, D
[2021-10-18 20:15] VITALS: BP 160/85; PULSE 88; RESP 17; TEMP 37.2
== END 2021-10-18 20:20 | disposition home or self-care (01) ==
PROVIDERS: Emergency Provider Nurse Practitioner Family; PCP Family Medicine
DX: K52.9 Noninfective gastroenteritis and colitis, unspecified (principal); I10 Essential (primary) hypertension; E11.8 Type 2 diabetes mellitus with unspecified complications; Z79.84 Long term (current) use of oral hypoglycemic drugs; E78.5 Hyperlipidemia, unspecified
CPT/HCPCS: 99212; G0463

== ENCOUNTER 2021-10-24 16:19 | Emergency (ER) | payer MEDICARE, MEDICAID, SELFPAY ==
[2021-10-24 17:03] VITALS: BP 137/74; PULSE 82; RESP 16; TEMP 36.9; O2SAT 96; BMI 30.9
--- NOTE | 2021-10-24 17:05 | HMH.EDUTC ---
[facility] Disposition Clinical Impression: Abscess of right buttock, Cellulitis and abscess of buttock Disposition: Home, Self-Care Condition on Discharge: Good Instructions: Cellulitis, Boil Additional Instructions: Keep the affected area as clean and dry you can. Follow up with your regular doctor. Soak in a warm tub 3 times per day as tolerated. Take the antibiotics as directed and apply the topical antibiotics as directed. Apply warm wet compresses to the affected area three or four times per day. GO TO THE ER FOR ANY WORSENING SYMPTOMS Prescriptions: Sulfamethoxazole/Trimethoprim [Bactrim DS tablet] 1 each PO BID 10 Days #20 tab Transmission Status: Received by [facility] Mupirocin [Bactroban 2% Ointment 22gm tube] 1 applicatio TP TID 7 Days #1 gm Transmission Status: Received by [facility] cephALEXin [cephALEXin 500mg capsule] 500 mg PO Q6H 10 Days #40 cap Transmission Status: Received by [facility] Referrals: Lasha Castaneda MD [Primary Care Provider] - Time of Disposition: 18:13 Medical Decision Making - Medical Records Medical records reviewed: No: I reviewed the patient's medical records. - El Inquiry Pt receiving controlled substance: No Vital Signs: 10/24/21 17:03 10/24/21 18:28 Temperature 98.4 F 98.4 F Temperature Source Oral Pulse Rate 82 Pulse Rate [Left] 82 Respiratory Rate 16 16 Blood Pressure 137/74 Blood Pressure [Right Arm] 137/74 Blood Pressure Mean [Right Arm] 95 02 Sat by Pulse Oximetry 96 Orders (Tests/Meds): ORDERS Category Date Time Status Wound Culture and Gram Stain Stat Micro 10/24/21 18:10 Received [facility] HPI - General Stated complaint: CYST ON rIGHT HIP Time Seen by Provider: 10/24/21 17:06 - History of Present Illness Provider Complaint: He states that on his right buttock he has had a swollen painful area for the past 3 days. He is unsure what started it, but now the place is very tender to touch and red around it. - Related Data Home Medications Medication Instructions Recorded Confirmed Metformin HCl 500 mg PO BID 03/02/18 06/23/20 Aspirin [Aspirin 81mg chewable 81 mg PO DAILY 11/15/18 06/23/20 tab] Atorvastatin Calcium [Atorvastatin 20 mg PO HS 11/15/18 06/23/20 20mg Tab] lisinopriL [Lisinopril 10mg Tab] 10 mg PO DAILY 11/15/18 06/23/20 paroxetine HCl 20 mg tablet 20 mg PO DAILY 11/20/18 06/23/20 tamsulosin 0.4 mg capsule 0.4 mg PO DAILY 11/20/18 06/23/20 cholecalciferol (vitamin D3) 50 50 mcg PO DAILY 09/28/20 mcg (2,000 unit) capsule meloxicam 7.5 mg tablet 7.5 mg PO BID tab 09/28/20 tizanidine 4 mg tablet 4 mg PO Q8H PRN tab 09/28/20 Previous Rx's Medication Instructions Recorded Ondansetron [Zofran 4mg ODT] 4 mg PO Q8HP PRN #20 tab 10/18/21 Mupirocin [Bactroban 2% Ointment 1 applicatio TP TID 7 Days #1 gm 10/24/21 22gm tube] Sulfamethoxazole/Trimethoprim 1 each PO BID 10 Days #20 tab 10/24/21 [Bactrim DS tablet] cephALEXin [cephALEXin 500mg 500 mg PO Q6H 10 Days #40 cap 10/24/21 capsule] Allergies Allergy/AdvReac Type Severity Reaction Status Date / Time Penicillins Allergy Verified 10/24/21 17:16 [facility] History - Hepatitis A Screen Attestation statement:: This patient has been screened for Hepatitis A risk factors. I have reviewed the patient's past medical history: Yes Medical History: Reports:: Diabetes Mellitus Type 2, Hyperlipidemia, Hypertension Denies:: Cancer, Diabetes Mellitus Type 1, Internal Pacemaker, MRSA, Seizures Other Medical History: Reports: Arthritis. Denies: Blood Transfusion Reaction Laterality Cases: Left: Other Other Surgeries: No: Pacemaker Amputation: No Fractures: No Comment: Back Sx - Social History Smoking Status: Never smoker Tobacco Type: cigarettes Alcohol Intake: never Substance Use Type: denies use Occupational Status: other Housing: house Household Members: other Fam
[2021-10-24 18:28] VITALS: BP 137/74; PULSE 82; RESP 16; TEMP 36.9
== END 2021-10-24 18:30 | disposition home or self-care (01) ==
PROVIDERS: Emergency Provider Nurse Practitioner Family; PCP Family Medicine
DX: L02.415 Cutaneous abscess of right lower limb (principal); M79.602 Pain in left arm; M71.351 Other bursal cyst, right hip; M54.2 Cervicalgia; I10 Essential (primary) hypertension; E78.5 Hyperlipidemia, unspecified; E11.9 Type 2 diabetes mellitus without complications; M19.90 Unspecified osteoarthritis, unspecified site; Z83.3 Family history of diabetes mellitus
CPT/HCPCS: 10060; 87070; 87077; 87186; 87205; 99213; G0463

== ENCOUNTER 2022-02-17 11:20 | Emergency (ER) | payer MEDICARE, MEDICAID, SELFPAY ==
[2022-02-17 11:26] VITALS: BP 135/73; PULSE 66; RESP 17; TEMP 36.7; O2SAT 99; BMI 33.0
--- NOTE | 2022-02-17 11:48 | EXP.UTC ---
Discharge Plan Disposition Patient Disposition: Home, Self-Care Condition: Good Prescriptions Prescriptions: New clindamycin HCl 300 mg capsule 300 mg PO Q8H Qty: 30 0RF ciprofloxacin HCl [Cipro] 500 mg tablet 500 mg PO BID 10 Days Qty: 20 0RF mupirocin 2 % ointment 1 applic topical TID 7 Days Qty: 15 0RF No Action cholecalciferol (vitamin D3) 50 mcg (2,000 unit) capsule 50 mcg PO DAILY meloxicam 7.5 mg tablet 7.5 mg PO BID tizanidine 4 mg tablet 4 mg PO Q8H PRN tamsulosin [Flomax] 0.4 mg capsule 0.4 mg PO DAILY paroxetine HCl 20 mg tablet 20 mg PO DAILY peg 3350-electrolytes [Golytely] 236-22.74-6.74 -5.86 gram recon soln 240 ml PO Q10M Qty: 4000 0RF Rx Instructions: until fecal effluent is clear ondansetron 4 MG tablet,disintegrating 4 mg PO Q8HP PRN (Reason: Nausea) Qty: 20 0RF metformin 500 MG tablet 500 mg PO BID atorvastatin 20 MG tablet 20 mg PO HS lisinopril 10 tablet 10 mg PO DAILY aspirin 81 MG tablet,chewable 81 mg PO DAILY sulfamethoxazole-trimethoprim 1 EACH tablet 1 each PO BID 10 Days Qty: 20 0RF cephalexin 500 MG capsule 500 mg PO Q6H 10 Days Qty: 40 0RF mupirocin 22 GM ointment 1 applicatio TP TID 7 Days Qty: 1 0RF Referrals Follow up/Referrals: Lasha Castaneda MD [Primary Care Provider] - See instructions Activity Restrictions/Add. Instructions Additional Instructions/Restrictions: Keep the wounds clean and dry. Follow up with your regular doctor. Take the antibiotics as directed and apply the topical antibiotics as directed. Make sure you stay in contact with the health department regarding the health of the dog. Watch the puncture wounds for signs of worsening infection, such as worsening redness, drainage, swelling, etc. 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 The dog is a blue healer. He states that the dog was trying to play with him when it bit him. It did not do it out of being mean. He states that his tetanus immunization is not up to date. Related Data Home Medications Medication Instructions Recorded Confirmed metformin 500 mg tablet 500 mg PO BID dm 03/02/18 06/23/20 aspirin 81 mg chewable tablet 81 mg PO DAILY heart healtg 11/15/18 06/23/20 atorvastatin 20 mg tablet 20 mg PO HS Cholesterol 11/15/18 06/23/20 lisinopril 10 mg tablet 10 mg PO DAILY htn 11/15/18 06/23/20 paroxetine HCl 20 mg tablet 20 mg PO DAILY Anxiety 11/20/18 06/23/20 tamsulosin 0.4 mg capsule (Flomax) 0.4 mg PO DAILY BLADDER 11/20/18 06/23/20 cholecalciferol (vitamin D3) 50 50 mcg PO DAILY 09/28/20 mcg (2,000 unit) capsule meloxicam 7.5 mg tablet 7.5 mg PO BID 09/28/20 tizanidine 4 mg tablet 4 mg PO Q8H PRN 09/28/20 Previous Rx's Medication Instructions Recorded ondansetron 4 mg disintegrating 4 mg PO Q8HP PRN Nausea #20 tabs 10/18/21 tablet cephalexin 500 mg capsule 500 mg PO Q6H 10 days #40 caps 10/24/21 mupirocin 2 % topical ointment 1 applicatio topical TID 7 days ##1 0
[2022-02-17 11:49] VITALS: BP 135/73; PULSE 66; RESP 17; TEMP 36.7; O2SAT 99; BMI 33.1
[2022-02-17 12:53] VITALS: BP 135/73; PULSE 66; RESP 17; TEMP 36.7
== END 2022-02-17 12:58 | disposition home or self-care (01) ==
PROVIDERS: Emergency Provider Nurse Practitioner Family; PCP Family Medicine
DX: S51.832A Puncture wound without foreign body of left forearm, initial encounter (principal); W54.0XXA Bitten by dog, initial encounter; Z88.0 Allergy status to penicillin; E11.69 Type 2 diabetes mellitus with other specified complication
CPT/HCPCS: 12001; 90471; 90714; 99213; G0463

== ENCOUNTER 2022-08-05 09:20 | Emergency (ER) | payer MEDICARE, SELFPAY ==
[2022-08-05 09:40] VITALS: BP 135/80; PULSE 71; RESP 20; TEMP 36.9; O2SAT 96; BMI 34.3
--- NOTE | 2022-08-05 09:47 | EXP.UTC ---
Discharge Plan Disposition Patient Disposition: Home, Self-Care Condition: Good Prescriptions Prescriptions: No Action cholecalciferol (vitamin D3) 50 mcg (2,000 unit) capsule 50 mcg PO DAILY meloxicam 7.5 mg tablet 7.5 mg PO BID tizanidine 4 mg tablet 4 mg PO Q8H PRN tamsulosin [Flomax] 0.4 mg capsule 0.4 mg PO DAILY paroxetine HCl 20 mg tablet 20 mg PO DAILY peg 3350-electrolytes [Golytely] 236-22.74-6.74 -5.86 gram recon soln 240 ml PO Q10M Qty: 4000 0RF Rx Instructions: until fecal effluent is clear ondansetron 4 MG tablet,disintegrating 4 mg PO Q8HP PRN (Reason: Nausea) Qty: 20 0RF metformin 500 MG tablet 500 mg PO BID atorvastatin 20 MG tablet 20 mg PO HS lisinopril 10 tablet 10 mg PO DAILY aspirin 81 MG tablet,chewable 81 mg PO DAILY sulfamethoxazole-trimethoprim 1 EACH tablet 1 each PO BID 10 Days Qty: 20 0RF cephalexin 500 MG capsule 500 mg PO Q6H 10 Days Qty: 40 0RF mupirocin 22 GM ointment 1 applicatio TP TID 7 Days Qty: 1 0RF clindamycin HCl 300 mg capsule 300 mg PO Q8H Qty: 30 0RF ciprofloxacin HCl [Cipro] 500 mg tablet 500 mg PO BID 10 Days Qty: 20 0RF mupirocin 2 % ointment 1 applic topical TID 7 Days Qty: 15 0RF Referrals Follow up/Referrals: Adi Bates MD [Primary Care Provider] - See instructions Discharge ED Provider: Rory Ortiz [facility] [place] General Stated complaint: Sore throat, sinus Time Seen by Provider: 08/05/22 09:47 History of Present Illness Provider Complaint: He states that for the past 3 days he has had sinus congestion, productive cough with yellowish sputum and he has felt bad. He denies fever. Related Data Home Medications Medication Instructions Recorded Confirmed metformin 500 mg tablet 500 mg PO BID dm 03/02/18 06/23/20 aspirin 81 mg chewable tablet 81 mg PO DAILY heart healtg 11/15/18 06/23/20 atorvastatin 20 mg tablet 20 mg PO HS Cholesterol 11/15/18 06/23/20 lisinopril 10 mg tablet 10 mg PO DAILY htn 11/15/18 06/23/20 paroxetine HCl 20 mg tablet 20 mg PO DAILY Anxiety 11/20/18 06/23/20 tamsulosin 0.4 mg capsule (Flomax) 0.4 mg PO DAILY BLADDER 11/20/18 06/23/20 cholecalciferol (vitamin D3) 50 50 mcg PO DAILY 09/28/20 mcg (2,000 unit) capsule meloxicam 7.5 mg tablet 7.5 mg PO BID 09/28/20 tizanidine 4 mg tablet 4 mg PO Q8H PRN 09/28/20 Previous Rx's Medication Instructions Recorded ondansetron 4 mg disintegrating 4 mg PO Q8HP PRN Nausea #20 tabs 10/18/21 tablet cephalexin 500 mg capsule 500 mg PO Q6H 10 days #40 caps 10/24/21 mupirocin 2 % topical ointment 1 applicatio topical TID 7 days ##1 10/24/21 sulfamethoxazole 800 1 each PO BID 10 days #20 tabs 10/24/21 mg-trimethoprim 160 mg tablet peg 3350-electrolytes 236 240 ml PO Q10M #4,000 mL 02/12/22 gram-22.74 gram-6.74 gram-5.86 gram solution (Golytely) ciprofloxacin HCl 500 mg tablet 500 mg PO BID 10 days #20 tabs 02/17/22 (Cipro) clindamycin HCl 300 mg capsule 300 mg PO Q8H #30 caps 02/17/22 mupirocin 2 % topical ointment 1 applic topical TID 7 days #15 02/17/22 grams Allergies Allergy/AdvReac Type Severity Reaction Status Date / Time Penicillins Allergy Verified 02/17/22 11:51 [facility] Disclaimer: The information contained in this section may have been updated after the patient was seen, as this information can be updated by other users. Medical History Chest pain Diabetes type 2, controlled HLD (hyperlipidemia) Left arm pain Neck pain Social History Smoking Status: Never smoker second hand exposure: No alcohol intake: never substance use type: denies use current occupational status: other Travel in the last 8 weeks: Inside the [place] household members: other housing: house current occupational exposures/hazards: No caffeine:
[2022-08-05 09:48] LABS: UTC Strep Screen (Rapid) Negative (Negative)
[2022-08-05 10:14] VITALS: BP 135/80; PULSE 71; RESP 20; TEMP 36.9; O2SAT 96
== END 2022-08-05 10:29 | disposition home or self-care (01) ==
PROVIDERS: Emergency Provider Nurse Practitioner Family; PCP Emergency Medicine
DX: J01.90 Acute sinusitis, unspecified (principal); J02.9 Acute pharyngitis, unspecified; E11.9 Type 2 diabetes mellitus without complications; I10 Essential (primary) hypertension; E78.5 Hyperlipidemia, unspecified; Z79.84 Long term (current) use of oral hypoglycemic drugs
CPT/HCPCS: 87880; 96372; 99212; 99214; G0463

== ENCOUNTER → 2022-08-30 09:12 | Outpatient (CLI) | payer MEDICARE, SELFPAY ==
[2022-08-30 14:46] LABS: Basophils % 0.2 % (0.1-2.0); Eosinophils % 1.4 % (0.1-12.0); Hematocrit 46.3 % (42.0-52.0); Hemoglobin 15.2 g/dL (14.1-18.0); Lymphocytes # 0.7 K/mm3 (0.7-4.5); Lymphocytes % 21.1 % (10-50); Mean Corpuscular HGB Conc 32.8 g/dL (31.8-35.4); Mean Corpuscular Hemoglobin 31.1 pg (27.0-31.2); Mean Corpuscular Volume 94.7 fl (80-94); Mean Platelet Volume 9.8 fl (7.4-10.4); Monocytes # 0.2 K/mm3 (0.1-1.0); Monocytes % 5.8 % (1.7-9.3); Neutrophils # 2.2 K/mm3 (1.8-7.8); Neutrophils % 71.6 % (37.0-80.0); Platelet Count 89 K/mm3 (142-424); Red Blood Count 4.89 M/mm3 (4.60-6.20); Red Cell Distribution Width 13.5 % (11.5-17.5); White Blood Count 3.1 K/mm3 (4.8-10.8)
[2022-08-30 14:56] LABS: Alanine Aminotransferase 67 U/L (12-78); Albumin Level 4.2 g/dl (3.5-5.0); Albumin/Globulin Ratio 1.4 (1.1-1.8); Alkaline Phosphatase 154 U/L (38-126); Anion Gap 18.2 mEq/L (5-15); Aspartate Amino Transferase 57 U/L (17-59); Bilirubin,Total 1.1 mg/dl (0.2-1.3); Blood Urea Nitrogen 16 mg/dl (9-20); Calcium 8.9 mg/dl (8.4-10.2); Carbon Dioxide 25 mmol/L (22.0-30.0); Chloride 95 mmol/L (98-107); Chol/HDL Ratio 3.1 (1-3.5); Cholesterol 141 mg/dl (140-200); Estimated Glomerular Filt Rate 135 ml/min (>60); GFR (African American) 163 ML/MIN (>60); Globulin 2.9 g/dL (1.3-3.2); Glucose 317 mg/dl (74-100); HDL Cholesterol 46 mg/dl (40-60); Potassium 4.2 mmoL/L (3.5-5.1); Sodium 134 mmol/L (136-145); Total Protein,Serum 7.1 g/dl (6.3-8.2); Triglycerides 109 mg/dl (30-150); VLDL Cholesterol 22 mg/dL (0-40)
[2022-08-30 15:01] LABS: Hemoglobin A1C 10.7 % (4.0-6.0)
[2022-08-30 15:09] LABS: Direct LDL Cholesterol 84.12 mg/dL (100-129)
[2022-08-30 15:27] LABS: Prostate Specific Ag Screen 0.4 ng/ml (0.0-4.0); Thyroid Stimulating Hormone 2.16 uIU/mL (0.465-4.68)
== END ==
LOC: LAB.DROPOF 14:32
PROVIDERS: PCP Nurse Practitioner Family; Visit Provider Nurse Practitioner Family
DX: E11.9 Type 2 diabetes mellitus without complications (principal); H81.391 Other peripheral vertigo, right ear; R07.89 Other chest pain; Z12.5 Encounter for screening for malignant neoplasm of prostate; Z79.84 Long term (current) use of oral hypoglycemic drugs
CPT/HCPCS: 80053; 80061; 83036; 84443; 85025; G0103

== ENCOUNTER → 2022-09-27 13:54 | Outpatient (CLI) | payer MEDICARE, MEDICAID, SELFPAY | PROVIDERS: PCP Nurse Practitioner Family; Visit Provider Nurse Practitioner Family | DX: E11.9 Type 2 diabetes mellitus without complications (principal); Z71.3 Dietary counseling and surveillance ==

== ENCOUNTER 2023-07-06 18:14 | Emergency (ER) | payer MEDICARE, MEDICAID, SELFPAY ==
[2023-07-06 18:16] VITALS: BP 148/69; PULSE 68; RESP 19; TEMP 36.6; O2SAT 98; BMI 31.7
[2023-07-06 18:27] VITALS: BMI 31.7
--- NOTE | 2023-07-06 18:28 | XR_ITS ---
PROCEDURE INFORMATION: Exam: XR Chest Exam date and time: 07/06/2023 7:12 PM Age: 67 years old Clinical indication: Cough TECHNIQUE: Imaging protocol: Radiologic exam of the chest. Views: 1 view. COMPARISON: CR XR RIBS LT MIN 3V W CXR1V 12/30/2020 10:47 AM FINDINGS: Lungs: Unremarkable. No consolidation. Pleural spaces: Unremarkable. No pleural effusion. No pneumothorax. Heart/Mediastinum: Unremarkable. No cardiomegaly. Bones/joints: Unremarkable for age. IMPRESSION: Negative chest exam.
--- NOTE | 2023-07-06 18:32 | ED_ITS ---
Discharge Plan Disposition Patient Disposition: Home, Self-Care Prescriptions Prescriptions: No Action (DME) lancets 30 gauge misc See Rx Instructions .ROUTE .MEDSUPPLY Qty: 100 2RF Rx Instructions: As directed Farxiga 10 mg tablet 10 mg PO DAILY Qty: 30 2RF (DME) Accu-Chek Guide test strips Strip See Rx Instructions .ROUTE .MEDSUPPLY Qty: 10 Rx Instructions: test 2x daily (DME) lancets [Accu-Chek Softclix Lancets] Misc See Rx Instructions .ROUTE .MEDSUPPLY Qty: 100 Patient Comments: USE DIRECTED TWO TIMES DAILY FOR testing Rx Instructions: test 2x daily Trulicity 1.5 mg/0.5 mL pen injector 1.5 mg SQ WEEKLY Qty: 2 2RF glimepiride 2 mg tablet See Rx Instructions .ROUTE .COMPLEX Qty: 30 2RF Dose Instruction: TAKE ONE TABLET BY MOUTH EVERY DAY Rx Instructions: TAKE ONE TABLET BY MOUTH EVERY DAY tamsulosin 0.4 mg capsule See Rx Instructions .ROUTE .COMPLEX Qty: 30 2RF Dose Instruction: TAKE ONE CAPSULE BY MOUTH EVERY DAY Rx Instructions: TAKE ONE CAPSULE BY MOUTH EVERY DAY paroxetine HCl 20 mg tablet See Rx Instructions .ROUTE .COMPLEX Qty: 30 2RF Dose Instruction: TAKE ONE TABLET BY MOUTH EVERY DAY FOR ANXIETY Rx Instructions: TAKE ONE TABLET BY MOUTH EVERY DAY FOR ANXIETY aspirin 81 mg tablet,chewable See Rx Instructions .ROUTE .COMPLEX Qty: 30 2RF Dose Instruction: chew AND swallow 1 TABLET BY MOUTH EVERY DAY FOR heart health Rx Instructions: chew AND swallow 1 TABLET BY MOUTH EVERY DAY FOR heart health Referrals Follow up/Referrals: Ghassan Terrell APRN [Primary Care Provider] - See instructions Activity Restrictions/Add. Instructions Additional Instructions/Restrictions: At this time it was felt you are safe to be discharged home. If new or worsening symptoms please do not hesitate to return the emergency department. Your sugar was high in the emergency department today, please take your metformin as discussed and call Saturday morning to follow-up on [facility] or with Dr. Silver as soon as you are able to. Clinical Impressions Clinical Impression: Viral respiratory infection, Hyperglycemia, Diabetes Discharge ED Provider: Jonah Rios HPI General Chief Complaint: Upper Respiratory Infection Stated Complaint: cough, thirsty Time Seen by Provider: 03/23/24 18:20 History of Present Illness HPI narrative: Patient is a 67-year-old male with past medical history of [id number] diabetes on metformin, previously on Trulicity however he ran out approximately 2 months ago who presents emergency department for evaluation of cough. Onset was acute, over the last 2 to 3 days. He has had increased urinary frequency, dry mouth. Cough has been persistent. No current chest pain although he had a twinge of it this morning. Due to persistent symptoms he presents here for continued evaluation. No vomiting. Related Data Home Medications Medication Instructions Recorded Confirmed blood sugar diagnostic (Accu-Chek #10 ea 08/30/22 09/25/22 Guide test strips) lancets (Accu-Chek Softclix #100 ea 08/30/22 09/25/22 Lancets) Previous Rx's Medication Instructions Recorded dulaglutide 1.5 mg/0.5 mL 1.5 mg (0.5 mL) SQ WEEKLY #2 mL 08/30/22 subcutaneous pen injector ([employer]) dapagliflozin propanediol 10 mg 10 mg PO DAILY #30 tabs 09/21/22 tablet (Farxiga) lancets 30 gauge #100 ea 09/21/22 aspirin 81 mg chewable tablet See Rx Instructions .Route 02/22/23 .COMPLEX #30 tabs glimepiride 2 mg tablet See Rx Instructions .Route 02/22/23 .COMPLEX #30 tabs paroxetine HCl 20 mg tablet See Rx Instructions .Route 02/22/23 .COMPLEX #30 tabs tamsulosin 0.4 mg capsule See Rx Instructions .Route 02/22/23 .COMPLEX #30 caps Allergies Allergy/AdvReac Type Severity Reaction Status Date / Time Penicillins Allergy Verified 09/25/22 05:29 [facility] Disclaimer: The information contained in this section may have been updated after the patient was seen, as this information can be updated by other users. Medical History Chest pain Diabetes type 2, controlled HLD (hyperlipidemia) Left arm pain Neck pain Social History Smoking Status: Never smoker second hand exposure: No alcohol intake: never substance use type: denies use current occupational status: other Travel in the last 8 weeks: Inside the [facility] household members: other housing: house current occupational exposures/hazards: No caffeine: Yes ROS Obtained: Yes Systems reviewed as appropriate & no additional complaints except as documented Physical Exam General General appearance: alert and in no apparent distress Head Head exam: atraumatic and normocephalic Eye Eye exam: Present PERRL ENT ENT exam: Present mucous membranes dry Neck Neck exam: Present normal inspection Chest Chest inspection: Present normal inspection and symmetric chest wall rise Respiratory Respiratory exam: Present normal lung sounds bilaterally; Absent respiratory distress Cardiovascular Cardiovascular exam: Present regular rate and normal rhythm Abdominal Exam Abdominal exam: Present soft; Absent tenderness Extremities Exam Extremities exam: Present normal inspection Neurological Exam Neurological exam: Present alert Psychiatric Psychiatric exam: Present normal affect Skin Skin exam: Present warm and dry HEART Score HEART Score HEART Score assessment performed?: Yes History (anamnesis): Slightly suspicious ECG: Normal Age: >65 years Risk factors: 1-2 risk factors Troponin: </= normal limit HEART Score: 3 Critical Care Critical Care Time Critical Care Time: No Medical Decision Making El Inquiry Pt receiving controlled substance: No Vital Signs Vital Signs: 07/06/23 18:16 07/06/23 19:00 07/06/23 19:30 Temperature 97.9 F Temperature Source Oral Pulse Rate 76 75 Pulse Rate [Right] 68 Respiratory Rate 19 Blood Pressure 146/81 H 158/82 H Blood Pressure [Right Arm] 148/69 H Blood Pressure Mean 94 94 Blood Pressure Mean [Right Arm] 95 Blood Pressure Source [Right Arm] Automatic Cuff 02 Sat by Pulse Oximetry 98 98 99 Oxygen Delivery Method Room Air Room Air Room Air Lab Data Labs: Lab Results 07/06/23 18:27: WBC 3.5 L, RBC 4.70, Hgb 15.2, Hct 45.8, MCV 97.5 H, MCH 32.4 H, MCHC 33.2, RDW 13.7, Plt Count 80 L, MPV 8.6, Neut % (Auto) 64.5, Lymph % (Auto) 26.9, [place] % (Auto) 6.0, Eos % (Auto) 1.7, Baso % (Auto) 0.9, Neut # (Auto) 2.3, Lymph # (Auto) 0.9, [place] # (Auto) 0.2, Eos # (Auto) 0.1, Baso # (Auto) 0.0, S odium 135 L, Potassium 4.3, Chloride 100, Carbon Dioxide 33 H, Anion Gap 6.3, BUN 16, Creatinine 0.60 L, Estimated Creat Clear 102, Estimated GFR 134, Est GFR ( Amer) 163, Glucose 445 H*, Calcium 9.5, Total Bilirubin 1.0, AST 59, ALT 45, Alkaline Phosphatase 153 H, Troponin I < 0.01, Total Protein 6.8, Albumin 4.0, Globulin 2.8, Albumin/Globulin Ratio 1.4, Acetone Level None detected 07/06/23 18:32: VBG pH 7.38, VBG pCO2 48.1, VBG pO2 45.6 H, VBG HCO3 27.9, VBG Total CO2 29.4 H, VBG O2 Saturation 81.0 H, VBG Base Excess 2.8 H, VBG Lactic Acid 2.3 H 07/06/23 18:36: Urine Color Yellow, Urine Appearance Clear, Urine pH 7.0, Ur Specific [place] 1.010, Urine Protein Negative, Urine Glucose (UA) 3+, Urine Ketones Negative, Urine Blood Trace-i, Urine Nitrate Negative, Urine Bilirubin Negative, Urine Urobilinogen 2.0, Ur Leukocyte Esterase Negative, Urine RBC None, Urine WBC None, Ur Squamous Epith Cells Occasional, Urine Bacteria None 07/06/23 18:39: SARS-CoV-2 (PCR) Not detected, Influenza A Untype (PCR) Not detected, Influenza Type B (PCR) Not detected 07/06/23 18:27 07/06/23 18:27 Response Orders (Tests/Meds): ED MEDICATIONS Generic Name Dose Route Start Last Admin Trade Name Freq PRN Reason Stop Dose Admin Sodium Chloride 10 ml 07/06/23 18:28 Sodium Chloride 0.9% 10ml Flush Syringe IV 08/05/23 18:27 NEEDED PRN Maintain IV Site Discontinued Medications Generic Name Dose Route Start Last Admin Trade Name Freq PRN Reason Stop Dose Admin Lactated Ringer's 1,000 mls @ 999 mls/hr 07/06/23 18:28 07/06/23 18:33 Lactated Ringer's 1000 Ml Bag IV 07/06/23 19:28 999 mls/hr .Q1H1M ONE Administration Insulin Human Regular 8 unit 07/06/23 19:45 07/06/23 19:43 Insulin Human Regular 100 Units/Ml 10ml Vial IVP 07/06/23 19:46 8 unit ONCE ONE Administration ORDERS Category Date Time Status XR chest portable Stat Exams 07/06/23 18:28 Completed Acetone, Serum (Rapid) Stat Lab 07/06/23 18:27 Completed Complete Blood Count Auto Diff Stat Lab 07/06/23 18:27 Completed Comprehensive Metabolic Panel Stat Lab 07/06/23 18:27 Completed Rapid PCR Covid and Flu A/B Stat Lab 07/06/23 18:39 Completed Trop I [Troponin I] Stat Lab 07/06/23 18:27 Completed Troponin I Q3H Lab 07/06/23 21:45 Ordered Troponin I Q3H Lab 07/07/23 00:45 Ordered Urinalysis and Microscopic Stat Lab 07/06/23 18:36 Completed Venous Blood Gas Stat RT 07/06/23 18:32 Completed EKG Request [ECG Request] Stat Y 07/06/23 18:30 Ordered ECG Data Tracing #1: ECG Narrative: Independently interpreted by me, rate is 62, rhythm is regular, no ST elevation in anatomical contiguous leads. QTc 409. MDM Narrative Medical Decision Narrative: In summary patient is a 67-year-old male with past medical history described above who presents emergency department for evaluation of cough, dry mouth, increased urinary frequency in the setting of dxu-irpzgrt-[id number] diabetes out of his Trulicity. Patient is hemodynamically stable nontoxic-appearing upon arrival, afebrile. Fingerstick blood glucose greater than 400 at bedside. Patient is clear to auscultation in lung alexandre. History and physical consistent with viral respiratory infection however pneumonia remains on the differential chest x-ray and viral swab will be obtained. This could be the inciting factor to new onset DKA however he may just have a stress response induced hyperglycemia or medication noncompliance induced hyperglycemia. For this workup will be conducted with hematologic labs, urinalysis, VBG. Initial inventions include crystalloid bolus. Workup reviewed by me, hematologic labs remarkable for glucose of 445, no acidosis which excludes DKA. Initial troponin undetectably low. Chest x-ray shows no acute opacities. Patient was given 8 units of IV insulin and given that he is not in DKA will have expedited follow- up Saturday morning either at [facility] and if they are unable to accommodate him he will contact Dr. Silver's office and was given return precautions. He will continue to take his metformin throughout the weekend.
[2023-07-06] MEDS: LACTATED RINGERS 1000ML 1,000 ML 999 ML IV (18:33)
[2023-07-06 18:39] LABS: VBG Base Excess 2.8 mmol/L (-2.4-2.3); VBG HCO3 27.9 mmol/L (23-30); VBG PCO2 48.1 mmol/L (35-51); VBG PH 7.38 mmol/L (7.31-7.41); VBG PO2 45.6 mmol/L (28-40); VBG Total CO2 29.4 mmol/L (23-27)
[2023-07-06 18:40] LABS: Microscopic, Urine URINE MICROSCOPIC (MICROSCOPIC)
[2023-07-06 18:40] LABS: Coronavirus 19, PCR Not Detected (NotDetected); Influenza A, PCR Not Detected (NotDetected); Influenza B, PCR Not Detected (NotDetected)
--- NOTE | 2023-07-06 18:40 | PC.NURSE ---
Pt ambulatory to bathroom
[2023-07-06 18:41] LABS: Lactate Venous 2.3 mmol/L (0.4-2.0)
--- NOTE | 2023-07-06 18:41 | PC.NURSE ---
RT notified of VBG order
[2023-07-06 18:43] LABS: Basophils % 0.9 % (0.1-2.0); Eosinophils # 0.1 K/mm3 (0.0-0.4); Eosinophils % 1.7 % (0.1-12.0); Hematocrit 45.8 % (42.0-52.0); Hemoglobin 15.2 g/dL (14.1-18.0); Lymphocytes # 0.9 K/mm3 (0.7-4.5); Lymphocytes % 26.9 % (10-50); Mean Corpuscular HGB Conc 33.2 g/dL (31.8-35.4); Mean Corpuscular Hemoglobin 32.4 pg (27.0-31.2); Mean Corpuscular Volume 97.5 fl (80-94); Mean Platelet Volume 8.6 fl (7.4-10.4); Monocytes # 0.2 K/mm3 (0.1-1.0); Neutrophils # 2.3 K/mm3 (1.8-7.8); Neutrophils % 64.5 % (37.0-80.0); Platelet Count 80 K/mm3 (142-424); Red Cell Distribution Width 13.7 % (11.5-17.5); White Blood Count 3.5 K/mm3 (4.8-10.8)
--- NOTE | 2023-07-06 18:43 | ECG_ITS ---
APPROVED REPORT Exam: Resting ECG HR:62 bpm ECG Measurements Heart Rate 62 AXES OH 165 P 32 QRSd 98 QRS -10 QT 403 T 63 QTc 409 Critical Notification Critical Value: No Conclusion SINUS RHYTHM NORMAL ECG Electronically signed by : BISMARK GOMEZ, 07/07/2023 01:46:11
[2023-07-06 18:45] LABS: Appearance,Urine CLEAR (Clear); Bilirubin,Urine Negative (Negative); Blood, Urine TRACE-I (Negative); Color,Urine YELLOW (Yellow); Glucose,Urine (UA) 3+ (Negative); Ketones,Urine Negative (Negative); Leukocyte Esterase,Urine Negative (Negative); Nitrate,Urine Negative (Negative); Protein,Urine Negative (Negative)
[2023-07-06 18:46] LABS: Chloride 100 mmol/L (98-107); Sodium 135 mmol/L (136-145)
[2023-07-06 18:47] LABS: Potassium 4.3 mmoL/L (3.5-5.1)
[2023-07-06 18:49] LABS: Alanine Aminotransferase 45 U/L (12-78); Alkaline Phosphatase 153 U/L (38-126); Anion Gap 6.3 mEq/L (5-15); Aspartate Amino Transferase 59 U/L (17-59); Blood Urea Nitrogen 16 mg/dl (9-20); Carbon Dioxide 33 mmol/L (22.0-30.0); Creatinine Clearance Estimated 102 mL/min (50-200); Estimated Glomerular Filt Rate 134 ml/min (>60); GFR (African American) 163 ML/MIN (>60)
[2023-07-06 18:50] LABS: Albumin/Globulin Ratio 1.4 (1.1-1.8); Calcium 9.5 mg/dl (8.4-10.2); Globulin 2.8 g/dL (1.3-3.2); Total Protein,Serum 6.8 g/dl (6.3-8.2)
[2023-07-06 19:00] VITALS: BP 146/81; PULSE 76; O2SAT 98
[2023-07-06 19:05] LABS: Troponin I < 0.01 ng/ml (0.00-0.034)
[2023-07-06 19:06] LABS: Glucose 445 mg/dl (74-100)
--- NOTE | 2023-07-06 19:07 | PC.NURSE ---
Addendum entered by Ana Gomez RN 07/06/23 19:07: correction: glucose 445 Original Note: Dr. Rios notified of critical blood glucose 443
[2023-07-06 19:11] LABS: Acetone, Serum (Rapid) None Detected (None Detect)
[2023-07-06 19:13] LABS: Squamous Epithelial Cell,Urine Occasional #/hpf (0-5)
[2023-07-06 19:30] VITALS: BP 158/82; PULSE 75; O2SAT 99
[2023-07-06] MEDS: INSULIN HUMAN REGULAR 100 UNITS/ML 10ML VIAL 8 UNIT IVP (19:43)
[2023-07-06 20:32] VITALS: BP 152/78; PULSE 64; RESP 18; TEMP 36.7; O2SAT 98
== END 2023-07-06 20:33 | disposition home or self-care (01) ==
PROVIDERS: Emergency Provider Emergency Medicine; PCP Nurse Practitioner Family
DX: E11.65 Type 2 diabetes mellitus with hyperglycemia (principal); R05.9 Cough, unspecified; E78.5 Hyperlipidemia, unspecified; Z79.84 Long term (current) use of oral hypoglycemic drugs
CPT/HCPCS: 71045; 80053; 81001; 82009; 82803; 84484; 85025; 87636; 93005; 96361; 96374; 99285

== ENCOUNTER 2023-07-18 18:07 | Outpatient (CLI) | payer MEDICARE, MEDICAID, SELFPAY | END 2023-07-18 23:59 | LOC: LAB.DROPOF 18:07 | PROVIDERS: PCP Student in an Organized Health Care Education/Training Program; Visit Provider Student in an Organized Health Care Education/Training Program | DX: R05.8 Other specified cough (principal); R09.89 Other specified symptoms and signs involving the circulatory and respiratory systems | CPT/HCPCS: 87635 ==

== ENCOUNTER 2023-09-16 14:26 | Outpatient (CLI) | payer MEDICARE, MEDICAID, SELFPAY ==
--- NOTE | 2023-09-16 | CA_ITS ---
FINAL REPORT TECHNIQUE: Multiple transverse and longitudinal images were performed of right the femoral-popliteal deep venous system with augmentation and compression maneuvers. CLINICAL HISTORY: DM, CP, HLD. Subacute onset of pain RLE over last few weeks. Patient recently started Atorvastatin 3 weeks ago. FINDINGS: Right lower extremity duplex ultrasound demonstrates normal flow in the deep venous system. There is no abnormal echogenicity to suggest thrombus. There is normal compression and augmentation. IMPRESSION: No evidence of right DVT. Reviewed, Interpreted and Dictated by Paul Mccann III, MD Transcribed by Jyoti Cortez Authenticated and [facility]
[2023-09-16 19:32] LABS: Creatinine,Urine Random 73 mg/dL (Not Estab.); Microalbumin/Creatinine Ratio 47.2
== END 2023-09-16 23:59 | disposition home or self-care (01) ==
LOC: RAD 15:11 → LAB.DROPOF 15:13
PROVIDERS: PCP Family Medicine; Visit Provider Family Medicine
DX: E11.8 Type 2 diabetes mellitus with unspecified complications; Z79.84 Long term (current) use of oral hypoglycemic drugs; Z79.85 Long-term (current) use of injectable non-insulin antidiabetic drugs; M79.604 Pain in right leg
CPT/HCPCS: 82043; 82570; 93971

== ENCOUNTER 2023-11-21 08:22 | Emergency (ER) | payer MEDICARE, MEDICAID, SELFPAY ==
[2023-11-21 08:23] VITALS: BP 163/85; PULSE 67; RESP 18; TEMP 36.5; O2SAT 99; BMI 30.1
[2023-11-21 08:30] VITALS: BP 136/98; PULSE 75; O2SAT 98
--- NOTE | 2023-11-21 08:31 | XR_ITS ---
FINAL REPORT CLINICAL HISTORY: L little finger laceration FINDINGS: LEFT SECOND DIGIT 3 views were obtained. There is a soft tissue defect of the medial distal aspect of the fifth digit. Bony irregularity is seen at the distal aspect of the fifth middle phalanx, favor chip fractures. However, bony erosion could have a similar appearance. IMPRESSION: Bony irregularity of the distal aspect of the fifth middle phalanx favored to represent chip fractures. However, bony erosion could have a similar appearance. If there is clinical concern for osteomyelitis, consider MRI for further evaluation. Reviewed, Interpreted and Dictated by Paul Mccann III, MD Transcribed by Jyoti Cortez Authenticated and [facility]
[2023-11-21] MEDS: TET/DIPHTH/PERT-ADULT 0.5ML SYRINGE 0.5 ML IM (08:40)
[2023-11-21] MEDS: ACETAMINOPHEN 500MG TAB 1000 MG PO (08:40)
[2023-11-21] MEDS: IBUPROFEN 600 MG TABLET PO (08:40)
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
[2023-11-21 08:45] VITALS: BP 163/87; PULSE 63; O2SAT 97
--- NOTE | 2023-11-21 08:45 | PC.NURSE ---
RAD at BS
[2023-11-21 09:30] VITALS: BP 158/85
--- NOTE | 2023-11-21 09:37 | PC.NURSE ---
Dr. Grant at for lac repair
[2023-11-21] MEDS: CLINDAMYCIN PHOSPHATE/D5W 900 MG/50 ML PIGGYBACK 100 MG IV (09:44)
[2023-11-21] MEDS: LIDOCAINE 1% 20ML MDV 20 ML SQ (09:44)
[2023-11-21 09:56] VITALS: BP 158/85; PULSE 59; RESP 16; TEMP 36.5; O2SAT 99
== END 2023-11-21 09:57 | disposition home or self-care (01) ==
PROVIDERS: Emergency Provider Emergency Medicine; PCP Nurse Practitioner Family
DX: S62.607B Fracture of unspecified phalanx of left little finger, initial encounter for open fracture (principal); W31.2XXA Contact with powered woodworking and forming machines, initial encounter; Z23 Encounter for immunization
CPT/HCPCS: 12031; 73140; 90471; 90715; 96365; 99284

== ENCOUNTER 2023-12-29 20:19 | Emergency (ER) | payer MEDICARE, MEDICAID, SELFPAY ==
[2023-12-29 20:20] VITALS: BP 143/77; PULSE 77; RESP 16; TEMP 36.9; O2SAT 94; BMI 30.1
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
[2023-12-29 20:51] LABS: Coronavirus 19, PCR Not Detected (NotDetected); Influenza A, PCR Not Detected (NotDetected); Influenza B, PCR Not Detected (NotDetected)
[2023-12-29] MEDS: IBUPROFEN 400 MG TABLET 800 MG PO (20:51)
[2023-12-29] MEDS: ACETAMINOPHEN 500MG TAB 1000 MG PO (20:51)
[2023-12-29 20:53] VITALS: BP 138/76; PULSE 74; RESP 18; TEMP 36.9; O2SAT 98
== END 2023-12-29 20:57 | disposition home or self-care (01) ==
PROVIDERS: Physician Assistant; Emergency Provider Emergency Medicine; PCP Family Medicine
DX: J01.90 Acute sinusitis, unspecified (principal); R07.0 Pain in throat; R05.9 Cough, unspecified
CPT/HCPCS: 87636; 99283

== ENCOUNTER 2024-01-17 10:47 | Outpatient (CLI) | payer MEDICARE, MEDICAID, SELFPAY | END 2024-01-17 23:59 | disposition home or self-care (01) | LOC: LAB.DROPOF 01-20 10:48 | PROVIDERS: PCP Family Medicine; Visit Provider Family Medicine | DX: J01.90 Acute sinusitis, unspecified (principal) | CPT/HCPCS: 87635 ==

== ENCOUNTER 2024-03-16 14:37 | Emergency (ER) | payer MEDICARE, MEDICAID, SELFPAY ==
[2024-03-16 14:37] VITALS: BP 147/77; PULSE 62; RESP 20; TEMP 36.6; O2SAT 99; BMI 31.4
--- NOTE | 2024-03-16 14:45 | ECG_ITS ---
APPROVED REPORT Exam: Resting ECG HR:59 bpm ECG Measurements Heart Rate 59 AXES TN 158 P 25 QRSd 91 QRS 1 QT 414 T 30 QTc 414 Conclusion SINUS BRADYCARDIA BORDERLINE ECG Electronically signed by : PATTI KELLEY, 03/16/2024 20:22:57
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
--- NOTE | 2024-03-16 14:45 | CT_ITS ---
PROCEDURE INFORMATION: Exam: CT Head Without Contrast Exam date and time: 03/16/2024 3:06 PM Age: 68 years old Clinical indication: Pain; Headache; Additional info: Trauma, fall, head strike TECHNIQUE: Imaging protocol: Computed tomography of the head without contrast. Radiation optimization: All CT scans at this facility use at least one of these dose optimization techniques: automated exposure control; mA and/or kV adjustment per patient size (includes targeted exams where dose is matched to clinical indication); or iterative reconstruction. COMPARISON: HEADWO CT head/brain wo con 03/02/2018 8:05 PM FINDINGS: Brain: No acute infarct, hemorrhage, mass, or mass effect. Mild chronic white matter microvascular ischemic change. Prominent perivascular space in the right inferior basal ganglia. Cerebral ventricles: Normal ventricles. No appreciable extra-axial fluid. Paranasal sinuses: Mucosal thickening in the paranasal sinuses. Mastoid air cells: Clear. Orbital cavities: Orbits are unremarkable. Sella is unremarkable. Bones: Unremarkable. Soft tissues: Unremarkable. IMPRESSION: No acute intracranial abnormality.
--- NOTE | 2024-03-16 14:45 | CT_ITS ---
PROCEDURE INFORMATION: Exam: CT Cervical Spine Without Contrast Exam date and time: 03/16/2024 3:09 PM Age: 68 years old Clinical indication: Injury or trauma; Fall; Blunt trauma; Additional info: Fall, head strike TECHNIQUE: Imaging protocol: Computed tomography of the cervical spine without contrast. Radiation optimization: All CT scans at this facility use at least one of these dose optimization techniques: automated exposure control; mA and/or kV adjustment per patient size (includes targeted exams where dose is matched to clinical indication); or iterative reconstruction. COMPARISON: CT CERVICAL SPINE WO CON 03/16/2024 3:09 PM FINDINGS: Bones: No acute fracture or malalignment. No worrisome lytic or blastic osseous lesion. Mild-moderate multilevel disc space narrowing, marginal osteophyte formation, uncovertebral and facet hypertrophy. Associated minimal anterolisthesis at C3-C4. Lungs: Lung apices are normal. Soft tissues: Unremarkable. IMPRESSION: 1. No acute findings. 2. Mild-moderate multilevel degenerative change.
--- NOTE | 2024-03-16 14:45 | CT_ITS ---
PROCEDURE INFORMATION: Exam: CT Thoracic Spine Without Contrast Exam date and time: 03/16/2024 3:12 PM Age: 68 years old Clinical indication: Injury or trauma; Fall; Blunt trauma (contusions or hematomas); Additional info: Fall, back trauma TECHNIQUE: Imaging protocol: Computed tomography of the thoracic spine without contrast. Total images: 356 Radiation optimization: All CT scans at this facility use at least one of these dose optimization techniques: automated exposure control; mA and/or kV adjustment per patient size (includes targeted exams where dose is matched to clinical indication); or iterative reconstruction. COMPARISON: CT CERVICAL SPINE WO CON 03/16/2024 3:09 PM FINDINGS: Bones/joints: Kyphoplasty changes noted at L1. The thoracic spine demonstrates mild degenerative changes at multiple levels. No evidence of acute fracture. Soft tissues: Unremarkable. Lungs: Atelectatic changes noted within both lung bases. IMPRESSION: 1. Kyphoplasty changes noted at L1. 2. The thoracic spine demonstrates mild degenerative changes at multiple levels. 3. No evidence of acute fracture. 4. Atelectatic changes noted within both lung bases.
--- NOTE | 2024-03-16 14:50 | CT_ITS ---
PROCEDURE INFORMATION: Exam: CT Lumbar Spine Without Contrast Exam date and time: 03/16/2024 3:15 PM Age: 68 years old Clinical indication: Injury or trauma; Fall; Blunt trauma (contusions or hematomas); Additional info: Fall, back pain/trauma TECHNIQUE: Imaging protocol: Computed tomography of the lumbar spine without contrast. Total images: 376 Radiation optimization: All CT scans at this facility use at least one of these dose optimization techniques: automated exposure control; mA and/or kV adjustment per patient size (includes targeted exams where dose is matched to clinical indication); or iterative reconstruction. COMPARISON: MR LUMBAR SPINE WO CON 05/23/2020 3:26 PM FINDINGS: Bones/joints: Kyphoplasty changes noted at L1. The lumbar spine demonstrates mild degenerative changes at multiple levels. Mild compression deformity of L4 is present, age is indeterminate. Soft tissues: Unremarkable. IMPRESSION: 1. Kyphoplasty changes noted at L1. 2. The lumbar spine demonstrates mild degenerative changes at multiple levels. 3. Mild compression deformity of L4 is present, age is indeterminate.
--- OUTSIDE RECORDS SUMMARY | 2024-03-16 14:53 | XMS_ITS | Encounter Summary ---
Author Organization Healthcare Address [address] [id number] Care Team Providers Care Lactation Coordinator Name Role Phone Adi Bates MD Primary Care Provider [phone] Encounter Details Date Type Department Care Team (Late st Contact Info) Description 02/12/2024 2:45 PM EDT Office Visit [facility] [address] [place] [address] Lexx Dunham MD [address] [address] Pseudophakia, both eyes (Primary Dx) Social History Tobacco Use Types Packs/Day Years Used Date Smoking Tobacco: Never Passive Smoke Exposure: Never Smokeless Tobacco: Never Tobacco Cessation:Counseling Given: Not Answered Sex and Gender Information Value Date Recorded Sex Assigned at Not on file Legal Sex Male 1:25 PM EDT Gender Identity Not on file Sexual Orientation Not on file documented as of this encounter Miscellaneous Notes * Progress Notes - Lexx Dunham MD - 02/12/2024 2:45 PM EDT Subjective HPI Pt is a 68 yr old male with hx of T2DM w/ non-proliferative diabetic retinopathy (NPDR) status post(s/p) cataract extraction (CE) / intraocular lens insertion in left eye (02/03/24) here for POW1 visit. He reports left eye has been doing well throughout the week but complains of issues with right eye, stating, It's still blurry... I'm very unhappy about it. He reports floaters in both eyes, denies flashes. He denies eye pain. He reports use of pred forte (PF) in both eyes TID and Ofloxacin in left eye TID. Last edited by Felix Grace on 02/12/2024 2:52 PM. ROS Positive for: Eyes Negative for: Constitutional, Gastrointestinal, Neurological, Skin, Genitourinary, Musculoskeletal,HENT, Endocrine, Cardiovascular, Respiratory, Psychiatric, Allergic/Imm, Heme/Lymph Last edited by Felix Grace on 02/12/2024 2:46 PM. Objective Base Eye Exam Visual Acuity (Snellen - Linear) Right Left Dist sc 20/20 20/20 Dist ph sc NI Tonometry (Tonopen, 2:56 PM) Right Left Pressure 9 10 Pupils Shape React Right Meiotic Minimal Left Meiotic Minimal Extraocular Movement Right Left Full Full Neuro/Psych Oriented x3: Yes Mood/Affect: Normal Slit Lamp and Fundus Exam External Exam Right Left External Normal Normal Slit Lamp Exam Right Left Lids/Lashes Normal for age Normal for age Conjunctiva/Sclera Normal Normal Cornea Clear and compact Clear and compact Anterior Chamber Deep and quiet Deep and quiet Iris Normal pupil size and shape Normal pupil size and shape Lens emv stable emv stable Vitreous Normal Normal Assessment/Plan Diagnoses and all orders for this visit: Pseudophakia, both eyes Stop Ofx; taper Pf ou Rtc 4 mos ar/mr/dfe ou documented in this encounter Plan of Treatment Upcoming Encounters Date Type Department Care Team (Late st Contact Info) Description 06/10/2024 1:15 PM EST Office Visit [facility] [address] [place] [address] Lexx Dunham MD [address] [address] documented as of this encounter Visit Diagnoses Diagnosis Pseudophakia, both eyes- Primary Lens replaced by other means documented in this encounter Additional Health Concerns Assessment Noted Time A fall risk assessment has been complete d for the patient 02/12/2024 2:53 PM EDT A Body Mass Index follow-up plan has been documented for the patient 02/12/2024 3:32 PM EDT documented as of this encounter Care Teams Lactation Coordinator Relationship Specialty Start Date End Date Adi Bates MD [address] [place] [address] PCP - General 11/08/23 documented as of this encounter
--- OUTSIDE RECORDS SUMMARY | 2024-03-16 14:53 | XMS_ITS | Encounter Summary ---
Author Organization [facility] Address [address] [id number] Care Team Providers Care Professional Development Manager Name Role Phone Adi Bates MD Primary Care Provider [phone] Encounter Details Date Type Department Care Team (Late st Contact Info) Description 01/17/2024 3:00 PM EDT Office Visit [facility] [address] [place] [address] Lexx Dunham MD [address] [address] Cataract, nuclear sclerotic senile, left (Primary Dx); Pseudophakia of right eye Social History Tobacco Use Types Packs/Day Years Used Date Smoking Tobacco: Never Passive Smoke Exposure: Never Sex and Gender Information Value Date Recorded Sex Assigned at Not on file Legal Sex Male 1:25 PM EDT Gender Identity Not on file Sexual Orientation Not on file documented as of this encounter Miscellaneous Notes * Progress Notes - Lexx Dunham MD - 01/17/2024 3:00 PM EDT Patient desires cataract surgery left eye due to painless/progressive loss of vision at distance/near with correction and intolerable glare. Severity: sufficient to interfere with activities of daily living, and/or preventing night driving. Assessment/Plan Pt cleared for cataract surgery left eye. Risks/benefits/alternatives discussed. Other contributoryeye diseases ruled out. Visual gain anticipated. Select 22.0 D EMV ? @ 075 6-8a; [phone] Taper Pf od; stop Ofx tid od in 3d documented in this encounter Plan of Treatment Upcoming Encounters Date Type Department Care Team (Late st Contact Info) Description 06/10/2024 1:15 PM EST Office Visit [facility] [address] [facility] [place] [address] Lexx Dunham MD [address] [address] documented as of this encounter Visit Diagnoses Diagnosis Cataract, nuclear sclerotic senile, left- Primary Pseudophakia of right eye Lens replaced by other means documented in this encounter Additional Health Concerns Assessment Noted Time A fall risk assessment has been complete d for the patient 01/17/2024 2:33 PM EDT A Body Mass Index follow-up plan has been documented for the patient 01/17/2024 3:57 PM EDT documented as of this encounter Care Teams Professional Development Manager Relationship Specialty Start Date End Date Adi Bates MD [address] [place] [address] PCP - General 11/08/23 documented as of this encounter
--- OUTSIDE RECORDS SUMMARY | 2024-03-16 14:53 | XMS_ITS | Encounter Summary ---
Author Organization Healthcare Address [address] [id number] Care Team Providers Care Taping Foreman Name Role Phone Adi Bates MD Primary Care Provider [phone] Encounter Details Date Type Department Care Team (Latest Contact Info) Description 01/17/2024 Travel Social History Tobacco Use Types Packs/Day Years Used Date Smoking Tobacco: Never Passive Smoke Exposure: Never Sex and Gender Information Value Date Recorded Sex Assigned at Not on file Legal Sex Male 1:25 PM EDT Gender Identity Not on file Sexual Orientation Not on file documented as of this encounter Plan of Treatment Upcoming Encounters Date Type Department Care Team (Late st Contact Info) Description 06/10/2024 1:15 PM EST Office Visit [facility] [address] [place] [address] Lexx Dunham MD [address] [address] documented as of this encounter Visit Diagnoses Not on filedocumented in this encounter Additional Health Concerns Assessment Noted Time A fall risk assessment has been complete d for the patient 01/17/2024 2:33 PM EDT A Body Mass Index follow-up plan has been documented for the patient 01/17/2024 3:57 PM EDT documented as of this encounter Care Teams Taping Foreman Relationship Specialty Start Date End Date Adi Bates MD [address] [place] [address] PCP - General 11/08/23 documented as of this encounter
--- OUTSIDE RECORDS SUMMARY | 2024-03-16 14:53 | XMS_ITS | Encounter Summary ---
Author Organization Healthcare Address [address] [id number] Care Team Providers Care Trolley Collector Name Role Phone Adi Bates MD Primary Care Provider [phone] Encounter Details Date Type Department Care Team (Latest Contact Info) Description 01/14/2024 Travel Social History Tobacco Use Types Packs/Day [...] Description 06/10/2024 1:15 PM EST Office Visit [facility] [address] [place] [address] Lexx Dunham MD [address] [address] documented as of this encounter Visit Diagnoses Not on filedocumented in this encounter Additional Health Concerns Assessment Noted Time A fall risk assessment has been complete d for the patient 01/14/2024 8:52 AM EDT A Body Mass Index follow-up plan has been documented for the patient 01/14/2024 9:18 AM EDT documented as of this encounter Care Teams Trolley Collector Relationship Specialty Start Date End Date Adi Bates MD [address] [place] [address] PCP - General 11/08/23 documented as of this encounter
--- OUTSIDE RECORDS SUMMARY | 2024-03-16 14:53 | XMS_ITS | Encounter Summary ---
Author Organization [facility] Address [address] [id number] Care Team Providers Care Seam Finisher Name Role Phone Adi Bates MD Primary Care Provider [phone] Encounter Details Date Type Department Care Team (Latest Contact Info) Description 02/12/2024 Travel Social History Tobacco Use Types Packs/Day Years Used Date Smoking Tobacco: Never Passive Smoke Exposure: Never Smokeless Tobacco: Never Sex and Gender Information Value Date Recorded Sex Assigned at Not on file Legal Sex Male 1:25 PM EDT Gender Identity Not on file Sexual Orientation Not on file documented as of this encounter Plan of Treatment Upcoming Encounters Date Type Department Care Team (Late st Contact Info) Description 06/10/2024 1:15 PM EST Office Visit [facility] [address] [place] [address] Lexx Dunham MD [address] [address] documented as of this encounter Visit Diagnoses Not on filedocumented in this encounter Additional Health Concerns Assessment Noted Time A fall risk assessment has been complete d for the patient 02/12/2024 2:53 PM EDT A Body Mass Index follow-up plan has been documented for the patient 02/12/2024 3:32 PM EDT documented as of this encounter Care Teams Seam Finisher Relationship Specialty Start Date End Date Adi Bates MD [address] [place] [address] PCP - General 11/08/23 documented as of this encounter
--- OUTSIDE RECORDS SUMMARY | 2024-03-16 14:53 | XMS_ITS | Clinical Summary ---
Author Organization Healthcare Address [address] [place] [address] Care Team Providers Care Academic Coordinator Name Role Phone Adi Bates MD Primary Care Provider [phone] Allergies Active Allergy Reactions Criticality Noted Date Comments Penicillins Swelling High 07/18/2023 Medications Trulicity 1.5 MG/0.5ML solution pen-injector inj. pen INJECT 1.5 MG (0.5 ML) SUBCUTANEOUSLY ONCE A WEEK 4 Active PARoxetine (Paxil) 20 MG tablet TAKE ONE TABLET BY MOUTH EVERY DAY FOR ANXIETY Active lisinopril 5 MG tablet 1 tablet (5 mg). 4 Active Farxiga 10 MG tablet Take 1 tablet (10 mg) by mouth 1 (one) time each day. Active ofloxacin (Ocuflox) 0.3 % ophthalmic solution Administer 1 drop into the right eye 3 (three) times a day. 10 mL 1 4 Active prednisoLONE acetate (Pred-Forte) 1 % ophthalmic suspension Administer 1 drop into the right eye 4 (four) times a day. 10 mL 3 4 Active Active Problems Problem Noted Date Diagnosed Date Diabetes type 2, controlled 07/08/2023 Encounters Date Type Department Care Team Description 02/12/2024 2:45 PM EDT Office Visit [facility] [address] [place] [phone] Lexx Dunham MD Pseudophakia, both eyes (Primary Dx) 02/12/2024 Travel 02/04/2024 9:45 AM EDT Office Visit [facility] [address] [address] Lexx Dunham MD Pseudophakia, both eyes (Primary Dx) 02/04/2024 Travel 01/17/2024 3:00 PM EDT Office Visit [facility] [address] [place] [address] Lexx Dunham MD Cataract, nuclear sclerotic senile, left (Primary Dx); Pseudophakia of right eye 01/17/2024 Travel 01/14/2024 9:45 AM EDT Office Visit [facility] [address] [place] [address] Lexx Dunham MD Cataract, nuclear sclerotic senile, left (Primary Dx); Pseudophakia of right eye 01/14/2024 Travel 12/24/2023 9:30 AM EDT Consult [facility] [address] [place] [address] Lexx Dunham MD Cataract, nuclear sclerotic senile, right (Primary Dx); Cataract, nuclear sclerotic senile, left 12/24/2023 Travel from Last 3 Months Family History Medical History Relation Name Comments Cataracts Father Relation Name Status Comments Father Social History Tobacco Use Types Packs/Day Years Used Date Smoking Tobacco: Never Passive Smoke Exposure: Never Smokeless Tobacco: Never Tobacco Cessation:Counseling Given: Not Answered Sex and Gender Information Value Date Recorded Sex Assigned at Not on file Legal Sex Male 1:25 PM EDT Gender Identity Not on file Sexual Orientation Not on file Plan of Treatment Upcoming Encounters Date Type Department Care Team (Late st Contact Info) Description 06/10/2024 1:15 PM EST Office Visit [facility] [address] [place] [address] Lexx Dunham MD [address] [place] [address] Health Maintenance Due Date Last Done Comments [facility]- Medicare Initial Physic al (IPPE) 1955 [facility]-Depression Screening 1955 [facility]-Diabetes: Hemoglobin A1C 1955 [facility]-Hepatitis C Screening 1955 [facility]-Infant/Child/Adol SDOH Screenings 1955 [id number] Vaccine (#1) 09/02/1960 Diabetes: Dental Exam 09/02/1965 [facility]- SDOH Screenings 09/02/1973 [facility]-Adult SDOH Screenings 09/02/1973 [facility]-Zoster Vaccines (1 of 2) 09/02/1974 CT Colonography 09/02/2000 Colonoscopy 09/02/2000 FIT-DNA 09/02/2000 FIT 09/02/2000 FOBT 09/02/2000 Sigmoidoscopy 09/02/2000 [facility]-Colorectal Cancer Screening 09/02/2000 [facility]-RSV Vaccine: 60+ Years o r (1 - Risk 60-74 years 1-dose series) 2015 [facility]-Influenza Vaccine (#1) 2023 02/09/2022 [facility]-DTaP,Tdap,and Td Vaccine s (4 - Td or Tdap) 11/20/2033 11/21/2023, 02/17/2022, 11/03/2013 [facility]-Pneumococcal Vaccine: 65 + Years Completed 02/09/2022 [facility]-HIB Vaccines Aged Out No longer e ligible based on patient's age to complete this topic [facility]-HPV Vaccines Aged Out No longer e ligible based on patient's age to complete this topic [facility]-Hepatitis A Vaccines Aged Out No longer eligible based on patient's age to complete this topic [facility]-IPV Vaccines Aged Out No longer e ligible based on patient's age to complete this topic [facility]-Rotavirus Vaccines Aged Out No lo nger eligible based on patient's age to complete this topic Procedures Procedure Name Priority Date/Time Associated Diagnosis Comments IOL BIOMETRY - OU - BOTH EYES Routine 12/24/2023 9:43 AM EDT Cataract, nuclear sclerotic senile, right Cataract, nuclear sclerotic senile, left from Last 3 Months Results * IOL Biometry - OU - Both Eyes (12/24/2023 9:43 AM EDT) Anatomical Region Laterality Modality Head Other Narrative 12/24/2023 9:43 AM EDT Right Eye Lens style: EMV. Lens power: 22.50. Left Eye Lens style: EMV. Lens power: 22.00. Lexx Dunham MD OPHTH ULTRASOUND Final Result from Last 3 Months Insurance MEDICAID-[place] MED[place]ARE Care Teams Academic Coordinator Relationship Specialty Start Date End Date Adi Bates MD [address] [place] [address] [place] [address] PCP - General 11/08/23
--- OUTSIDE RECORDS SUMMARY | 2024-03-16 14:53 | XMS_ITS | Encounter Summary ---
Author Organization Healthcare Address [address] [place] [address] Care Team Providers Care Check Pilot Name Role Phone Adi Bates MD Primary Care Provider [phone] Encounter Details Date Type Department Care Team (Late st Contact Info) Description 02/04/2024 9:45 AM EDT Office Visit [facility] [address] [place] [address] Lexx Dunham MD [address] [address] Pseudophakia, both eyes (Primary Dx) [...] Progress Notes - Lexx Dunham MD - 02/04/2024 9:45 AM EDT Subjective HPI 68 yo m presents in clinic 1 day PO, cataract surgery left eye. Pt states vision is it is better than it was, my od is still a little fuzzy almost like sand is in it Pt notes od feels irritated like saw dust is in it Pt notes floaters are the same in od since last visit. Pt denies pain, flashes. Pt is using Pred forte and Ofloxacin TID, os 3-4. Last edited by Felix Houston on 02/04/2024 9:26 AM. ROS Positive for: Eyes Negative for: Constitutional, Gastrointestinal, Neurological, Skin, Genitourinary, Musculoskeletal,HENT, Endocrine, Cardiovascular, Respiratory, Psychiatric, Allergic/Imm, Heme/Lymph Last edited by Felix Houston on 02/04/2024 9:17 AM. Objective Base Eye Exam Visual Acuity (Snellen - Linear) Right Left Dist sc 20/60 20/20 -1 Dist ph sc 20/50 -2 Tonometry (Tonopen, 9:34 AM) Right Left Pressure 14 14 Pupils Shape React APD Right Round Slow None Left Round Slow None Neuro/Psych Oriented x3: Yes Mood/Affect: Normal Slit [...] orders for this visit: Pseudophakia, both eyes Pf 5x/d ou; Ofx tid os Rtc 10d documented in this encounter Plan of Treatment Upcoming Encounters Date Type Department Care Team (Late st Contact Info) Description 06/10/2024 1:15 PM EST Office Visit [facility] [address] [place] [address] Lexx Dunham MD [address] [address] documented as of this encounter Visit Diagnoses Diagnosis Pseudophakia, both eyes- Primary Lens replaced by other means documented in this encounter Additional Health Concerns Assessment Noted Time A fall risk assessment has been complete d for the patient 02/04/2024 9:27 AM EDT A Body Mass Index follow-up plan has been documented for the patient 02/04/2024 9:47 AM EDT documented as of this encounter Care Teams Check Pilot Relationship Specialty Start Date End Date Adi Bates MD [address] [place] [address] PCP - General 11/08/23 documented as of this encounter
--- OUTSIDE RECORDS SUMMARY | 2024-03-16 14:53 | XMS_ITS | Encounter Summary ---
Author Organization Healthcare Address [address] [id number] Care Team Providers Care Senior Business Intelligence Analyst Name Role Phone Adi Bates MD Primary Care Provider [phone] Encounter Details Date Type Department Care Team (Latest Contact Info) Description 02/04/2024 Travel Social History Tobacco Use Types Packs/Day [...] Description 06/10/2024 1:15 PM EST Office Visit [facility] [address] [place] [address] Lexx Dunham MD [address] [phone] documented as of this encounter Visit Diagnoses Not on filedocumented in this encounter Additional Health Concerns Assessment Noted Time A fall risk assessment has been complete d for the patient 02/04/2024 9:27 AM EDT A Body Mass Index follow-up plan has been documented for the patient 02/04/2024 9:47 AM EDT documented as of this encounter Care Teams Senior Business Intelligence Analyst Relationship Specialty Start Date End Date Adi Bates MD [address] [place] [address] PCP - General 11/08/23 documented as of this encounter
--- OUTSIDE RECORDS SUMMARY | 2024-03-16 14:54 | XMS_ITS | Encounter Summary ---
Author Organization [facility] Address [address] [place] [address] Care Team Providers Care Fishing Tackle Repairer Name Role Phone Adi Bates MD Primary Care Provider [phone] Encounter Details Date Type Department Care Team (Latest Contact Info) Description 11/08/2023 Travel Social History Tobacco Use Types Packs/Day [...] Description 06/10/2024 1:15 PM EST Office Visit [facility] [address] [place] [address] Lexx Dunham MD [address] [address] documented as of this encounter Visit Diagnoses Not on filedocumented in this encounter Additional Health Concerns Assessment Noted Time A Body Mass Index follow-up plan has been documented for the patient 11/08/2023 9:50 AM EDT documented as of this encounter Care Teams Fishing Tackle Repairer Relationship Specialty Start Date End Date Adi Bates MD [address] [place] [address] PCP - General 11/08/23 documented as of this encounter
--- OUTSIDE RECORDS SUMMARY | 2024-03-16 14:54 | XMS_ITS | Encounter Summary ---
Author Organization [facility] Address 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 due to underlying condition, macular edema presence unspecified, unspecified laterality (CMS/HCC) (Primary Dx); Cataract, nuclear sclerotic senile, right; Cataract, nuclear sclerotic senile, left Social History Tobacco Use Types Packs/Day Years Used Date Smoking Tobacco: Never Passive Smoke Exposure: Never Tobacco Cessation:Counseling Given: Not Answered Sex and Gender Information Value Date Recorded Sex Assigned at Not on file Legal Sex Male 1:25 PM EDT Gender Identity Not on file Sexual Orientation Not on file documented as of this encounter Miscellaneous Notes * Progress Notes - Lexx Dunham MD - 11/08/2023 9:00 AM EDT Subjective HPI Hong Rey is a 68 y.o. male presents today in clinic for cataract eval with history of Diabetes type 2, controlled (CMS/HCC). Pt is complaining of haziness in both eyes (OU). He notes that his near vision is blurred but denies any blurred vision at distance. Pt does wear glasses. Pt not using any drops. Last A1c : N/A. ?A1c/BG; c/o hazy vision ou limiting daily routine Last edited by Lexx Dunham MD on 11/08/2023 9:32 AM. ROS Positive for: Eyes Negative for: Constitutional, Gastrointestinal, Neurological, Skin, Genitourinary, Musculoskeletal,HENT, Endocrine, Cardiovascular, Respiratory, Psychiatric, Allergic/Imm, Heme/Lymph Last edited by Omaira Monterroso on 11/08/2023 8:55 AM. Objective Base Eye Exam Visual Acuity (Snellen - Linear) Right Left Dist sc 20/25 20/25 Near cc J1+ J1+ Tonometry (Tonopen, 9:14 AM) Right Left Pressure 15 16 Pupils Pupils Right PERRL Left PERRL Extraocular Movement Right Left Full Full Neuro/Psych Oriented x3: Yes Mood/Affect: Normal Dilation Both eyes: 1% Tropicamide, 2.5% Phenylephrine @ 9:14 AM Additional Tests Glare Testing (Glare) Off Right 20/40+ Left 20/40+ Slit Lamp and Fundus Exam External Exam Right Left External Normal Normal Slit Lamp Exam Right Left Lids/Lashes Normal for age Normal for age Conjunctiva/Sclera Normal Normal Cornea Clear and compact Clear and compact Anterior Chamber Deep and quiet Deep and quiet Iris Normal pupil size and shape Normal pupil size and shape Lens 1-2+ns 1-2+ns Vitreous Normal Normal Fundus Exam Right Left Disc No edema; no vascularization; good color (Tod 78 d Lens) No edema; no vascularization; good color (Tod 78 d Lens) C/D Ratio 0.35 0.35 Macula Normal reflex; without edema; d/b heme Normal reflex; without edema; d/b heme Vessels Perfused; no tortuosity or abnormality Perfused; no tortuosity or abnormality Periphery Attached; no retinal or choroidal lesions Attached; no retinal or choroidal lesions Refraction Wearing Rx Sphere Right +2.50 Left +2.50 Type: readers Pt didn't bring glasses but brought his readers. 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 due to underlying condition, macular edema presence unspecified, unspecified laterality (CMS/HCC) - OCT, Retina - OU - Both Eyes Cataract, nuclear sclerotic senile, right Cataract, nuclear sclerotic senile, left DM info given; discussed value of regulating blood glucose levels and lifestyle influences Discussed cataracts; schedule OD 12/29 & OS 01/12; preop 12/22 @ 9a documented in this encounter Plan of Treatment Upcoming Encounters Date Type Department Care Team (Late st Contact Info) Description 06/10/2024 1:15 PM EST Office Visit [facility] [address] [place] [address] Lexx Dunham MD [address] [address] documented as of this encounter Procedures Procedure Name Priority Date/Time Associated Diagnosis Comments OCT, RETINA - OU - BOTH EYES Routine 11/08/2023 9:46 AM EDT 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 Progression has no prior data. Findings include normal observations, normal foveal contour. Left Eye Quality was good. Progression has no prior data. Findings include normal observations, normal foveal contour. 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
--- OUTSIDE RECORDS SUMMARY | 2024-03-16 14:54 | XMS_ITS | Encounter Summary ---
Author Organization [facility] Address [address] [id number] Care Team Providers Care Manager Decision Support Name Role Phone Adi Bates MD Primary Care Provider [phone] Reason for Visit * Reason Comments Pre-op Exam Encounter Details Date Type Department Care Team (Late st Contact Info) Description 12/24/2023 9:30 AM EDT Consult [facility] [address] [place] [address] Lexx Dunham MD [address] [address] Cataract, nuclear sclerotic senile, right (Primary Dx); Cataract, nuclear sclerotic senile, left Social History [...] Progress Notes - Lexx Dunham MD - 12/24/2023 9:30 AM EDT Patient desires cataract surgery right eye due to painless/progressive loss of vision at distance/near with correction and intolerable glare. Severity: sufficient to interfere with activities of daily living, and/or preventing night driving. Assessment/Plan Pt cleared for cataract surgery right eye. Risks/benefits/alternatives discussed. Other contributory eye diseases ruled out. Visual gain anticipated. Select 22.5 D EMV 6-8a; [phone] documented in this encounter Plan of Treatment Upcoming Encounters Date Type Department Care Team (Late st Contact Info) Description 06/10/2024 1:15 PM EST Office Visit [facility] [address] [place] [address] Lexx Dunham MD [address] [place] [address] documented as of this encounter Procedures Procedure Name Priority Date/Time Associated Diagnosis Comments IOL BIOMETRY - OU - BOTH EYES Routine 12/24/2023 9:43 AM EDT Cataract, nuclear sclerotic senile, right Cataract, nuclear sclerotic senile, left documented in this encounter Results * IOL Biometry - OU - Both Eyes (12/24/2023 9:43 AM EDT) Anatomical Region Laterality Modality Head Other Narrative 12/24/2023 9:43 AM EDT Right Eye Lens style: EMV. Lens power: 22.50. Left Eye Lens style: EMV. Lens power: 22.00. Lexx Dunham MD OPHTH ULTRASOUND Final Result documented in this encounter Visit Diagnoses Diagnosis Cataract, nuclear sclerotic senile, right- Primary Cataract, nuclear sclerotic senile, left documented in this encounter Additional Health Concerns Assessment Noted Time A Body Mass Index follow-up plan has been documented for the patient 12/24/2023 9:54 AM EDT documented as of this encounter Care Teams Manager Decision Support Relationship Specialty Start Date End Date Adi Bates MD [address] [place] [address] PCP - General 11/08/23 documented as of this encounter
--- OUTSIDE RECORDS SUMMARY | 2024-03-16 14:54 | XMS_ITS | Encounter Summary ---
Author Organization [facility] Address [address] [place] [address] Care Team Providers Care Outside B2B Sales Name Role Phone Adi Bates MD Primary Care Provider [phone] Encounter Details Date Type Department Care Team (Latest Contact Info) Description 12/24/2023 Travel Social History Tobacco Use Types Packs/Day [...] Description 06/10/2024 1:15 PM EST Office Visit [facility] [address] [place] [address] Lexx Dunham MD [address] [address] documented as of this encounter Visit Diagnoses Not on filedocumented in this encounter Additional Health Concerns Assessment Noted Time A Body Mass Index follow-up plan has been documented for the patient 12/24/2023 9:54 AM EDT documented as of this encounter Care Teams Outside B2B Sales Relationship Specialty Start Date End Date Adi Bates MD [address] [place] [address] PCP - General 11/08/23 documented as of this encounter
--- OUTSIDE RECORDS SUMMARY | 2024-03-16 14:54 | XMS_ITS | Encounter Summary ---
Author Organization [facility] Address [address] [place], [place] [id number] Care Team Providers Care Compensation Supervisor Name Role Phone Adi Bates MD Primary Care Provider [phone] Encounter Details Date Type Department Care Team (Late st Contact Info) Description 11/08/2023 9:35 AM EDT Ancillary Procedure [facility] [address] [place] [address] Social History Tobacco Use Types Packs/Day Years [...] Description 06/10/2024 1:15 PM EST Office Visit [facility] [address] [place] [address] Lexx Dunham MD [address] [address] documented as of this encounter [...] Notes No evidence of Diab ??CSME ou us Lexx Dunham MD OPHTH TOMOGRAPHY Final Result documented in this encounter Visit Diagnoses Not on filedocumented in this encounter Additional Health Concerns Assessment Noted Time A Body Mass Index follow-up plan has been documented for the patient 11/08/2023 9:50 AM EDT documented as of this encounter Care Teams Compensation Supervisor Relationship Specialty Start Date End Date Adi Bates MD [address] [place] [address] PCP - General 11/08/23 documented as of this encounter
--- OUTSIDE RECORDS SUMMARY | 2024-03-16 14:54 | XMS_ITS | Encounter Summary ---
Author Organization [facility] Address [address] [id number] Care Team Providers Care Bobbin Washer Name Role Phone Adi Bates MD Primary Care Provider [phone] Encounter Details Date Type Department Care Team (Late st Contact Info) Description 01/14/2024 9:45 AM EDT Office Visit [facility] [address] [place] [address] Lexx Dunham MD [address] [address] Cataract, nuclear sclerotic senile, left [...] Progress Notes - Lexx Dunham MD - 01/14/2024 9:45 AM EDT Subjective HPI 68 yo m presents in clinic 1 day PO, cataract surgery, od. Pt states vision is better than yesterday, felt like there was sand in it, but nothing like it was Pt denies pain, flashes and floaters. Pt notes od feels very dry. Pt is using Pred forte and Ofloxacin three times a day. Last edited by Felix Houston on 01/14/2024 8:51 AM. ROS Positive for: Eyes Negative for: Constitutional, Gastrointestinal, Neurological, Skin, Genitourinary, Musculoskeletal,HENT, Endocrine, Cardiovascular, Respiratory, Psychiatric, Allergic/Imm, Heme/Lymph Last edited by Felix Houston on 01/14/2024 8:44 AM. Objective Base Eye Exam Visual Acuity (Snellen - Linear) Right Left Dist sc 20/40 +1 20/20 -3 Dist ph sc 20/20 Tonometry (Tonopen, 8:59 AM) Right Left Pressure 13 13 Pupils Pupils APD Right PERRL None Left PERRL None Visual Johansen Right Left Full Full Extraocular Movement Right Left Full, Ortho Full, Ortho Neuro/Psych Oriented x3: Yes Mood/Affect: Normal Slit Lamp and Fundus Exam External Exam Right Left External Normal Normal Slit Lamp Exam Right Left Lids/Lashes Normal for age Normal for age Conjunctiva/Sclera Normal Normal Cornea Clear and compact Clear and compact Anterior Chamber Deep and quiet Deep and quiet Iris Normal pupil size and shape Normal pupil size and shape Lens emv tsable 1-2+ns Vitreous Normal Normal Assessment/Plan Diagnoses and all orders for this visit: Cataract, nuclear sclerotic senile, left Pseudophakia of right eye Pf qid/Ofx tid od Rtc 3d preop os documented in this encounter Plan of Treatment Upcoming Encounters Date Type Department Care Team (Late st Contact Info) Description 06/10/2024 1:15 PM EST Office Visit [facility] [address] [place] [address] Lexx Dunham MD [address] [address] documented as of this encounter [...] documented as of this encounter Care Teams Bobbin Washer Relationship Specialty Start Date End Date Adi Bates MD [address] [facility] [place] [address] PCP - General 11/08/23 documented as of this encounter
[2024-03-16 15:05] LABS: Basophils % 0.5 % (0.1-2.0); Eosinophils % 0.8 % (0.1-12.0); Hematocrit 47.7 % (42.0-52.0); Hemoglobin 16.5 g/dL (14.1-18.0); Lymphocytes # 0.9 K/mm3 (0.7-4.5); Lymphocytes % 14.7 % (10-50); Mean Corpuscular HGB Conc 34.6 g/dL (31.8-35.4); Mean Corpuscular Hemoglobin 31.6 pg (27.0-31.2); Mean Corpuscular Volume 91.4 fl (80-94); Mean Platelet Volume 7.8 fl (7.4-10.4); Monocytes # 0.3 K/mm3 (0.1-1.0); Monocytes % 4.4 % (1.7-9.3); Neutrophils # 4.6 K/mm3 (1.8-7.8); Neutrophils % 79.7 % (37.0-80.0); Platelet Count 92 K/mm3 (142-424); Red Blood Count 5.22 M/mm3 (4.60-6.20); Red Cell Distribution Width 13.8 % (11.5-17.5); White Blood Count 5.8 K/mm3 (4.8-10.8)
--- NOTE | 2024-03-16 15:05 | PC.NURSE ---
pt transferred to ct
[2024-03-16 15:14] LABS: Albumin Level 4.8 g/dl (3.5-5.0); Chloride 101 mmol/L (98-107); Potassium 4.5 mmoL/L (3.5-5.1); Sodium 137 mmol/L (136-145)
[2024-03-16 15:17] LABS: Alanine Aminotransferase 68 U/L (12-78); Albumin/Globulin Ratio 1.5 (1.1-1.8); Alkaline Phosphatase 145 U/L (38-126); Anion Gap 12.5 mEq/L (5-15); Aspartate Amino Transferase 80 U/L (17-59); Bilirubin,Total 1.5 mg/dl (0.2-1.3); Blood Urea Nitrogen 16 mg/dl (9-20); Carbon Dioxide 28 mmol/L (22.0-30.0); Creatinine Clearance Estimated 95 mL/min (50-200); Estimated Glomerular Filt Rate 112 ml/min (>60); GFR (African American) 136 ML/MIN (>60); Globulin 3.2 g/dL (1.3-3.2)
[2024-03-16 15:18] LABS: Calcium 9.5 mg/dl (8.4-10.2); Glucose 168 mg/dl (74-100)
--- NOTE | 2024-03-16 15:20 | PC.NURSE ---
pt returned to room
[2024-03-16 15:31] VITALS: BP 158/77; PULSE 71; O2SAT 96
[2024-03-16 16:01] VITALS: BP 159/76; PULSE 68; O2SAT 98
[2024-03-16] MEDS: KETOROLAC 30MG/ML VIAL 15 MG IV (16:02)
[2024-03-16] MEDS: ACETAMINOPHEN 500MG TAB 1000 MG PO (16:02)
[2024-03-16] MEDS: OXYCODONE 5MG IMMEDIATE RELEASE TABLET 5 MG PO (16:02)
[2024-03-16] MEDS: ONDANSETRON 4MG/2ML VIAL 4 MG IV ×2 (16:02→18:36)
[2024-03-16 16:31] VITALS: BP 129/68; PULSE 66; O2SAT 99
--- NOTE | 2024-03-16 17:01 | PC.NURSE ---
pt was able to ambulate in room with minimal assistance, pt sitting in chair eating crackers and drinking a pop at this time. Dr.Brooks hodge.
[2024-03-16] MEDS: METHOCARBAMOL 500MG TABLET 500 MG PO (17:41)
[2024-03-16] MEDS: LIDOCAINE 5% TRANSDERMAL PATCH 1 EACH TP (17:41)
[2024-03-16] MEDS: MORPHINE 4MG/ML SYRINGE 4 MG IV (17:42)
--- NOTE | 2024-03-16 19:03 | PC.NURSE ---
pt ambulated to bathroom without assistance. Reports that he feels better
[2024-03-16 19:20] VITALS: BP 113/67; PULSE 69; RESP 18; TEMP 36.6; O2SAT 96
[2024-03-16 20:45] LABS: HIV (1&2) Antibody Rapid NONREACTIVE (NONREACTIVE)
== END 2024-03-16 19:21 | disposition home or self-care (01) ==
PROVIDERS: Student in an Organized Health Care Education/Training Program; Emergency Provider Emergency Medicine; PCP Family Medicine
DX: S32.040A Wedge compression fracture of fourth lumbar vertebra, initial encounter for closed fracture (principal); M54.9 Dorsalgia, unspecified; W11.XXXA Fall on and from ladder, initial encounter; Y93.89 Activity, other specified; Y92.007 Garden or yard of unspecified non-institutional (private) residence as the place of occurrence of the external cause
CPT/HCPCS: 70450; 72125; 72128; 72131; 80053; 85025; 87389; 93005; 96374; 96375; 99284; J1885; J2270; J2405

== ENCOUNTER 2024-03-24 13:38 | Outpatient (POV) | payer MEDICARE, MEDICAID, SELFPAY ==
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
[2024-03-24 14:29] VITALS: BP 146/55; PULSE 70; RESP 18; TEMP 36.2; O2SAT 95; BMI 30.4
--- OUTSIDE RECORDS SUMMARY | 2024-03-24 23:21 | XMS_ITS | Encounter Summary ---
Author Organization Healthcare Address [address] [id number] Care Team Providers Care High School Biology Teacher Name Role Phone Adi Bates MD Primary Care Provider [phone] Encounter Details Date Type Department Care Team [...] Description 06/10/2024 1:15 PM EST Office Visit [facility] [address] [place] [address] Lexx Dunham MD [address] [address] documented as of this encounter Visit Diagnoses Not on filedocumented in this encounter Additional Health Concerns Assessment Noted Time A fall risk assessment has been complete d for the patient 02/04/2024 9:27 AM EDT A Body Mass Index follow-up plan has been documented for the patient 02/04/2024 9:47 AM EDT documented as of this encounter Care Teams High School Biology Teacher Relationship Specialty Start Date End Date Adi Bates MD [address] [place] [address] PCP - General 11/08/23 documented as of this encounter
--- OUTSIDE RECORDS SUMMARY | 2024-03-24 23:21 | XMS_ITS | Clinical Summary ---
Author Organization Healthcare Address [address] [place] [address] Care Team Providers Care Faith Healer Name Role Phone Adi Bates MD Primary Care Provider [phone] Allergies Active Allergy Reactions Criticality Noted Date [...] Description 02/12/2024 2:45 PM EDT Office Visit [facility] [address] [place] [phone] Lexx Dunham MD Pseudophakia, both eyes (Primary Dx) 02/12/2024 Travel 02/04/2024 9:45 AM EDT Office Visit [facility] [address] [address] Lexx Dunham MD Pseudophakia, both eyes (Primary Dx) 02/04/2024 Travel 01/17/2024 3:00 PM EDT Office Visit [facility] [address] [place] [address] Lexx Dunham MD Cataract, nuclear sclerotic senile, left (Primary Dx); Pseudophakia of right eye 01/17/2024 Travel 01/14/2024 9:45 AM EDT Office Visit [facility] [address] [place] [address] Lexx Dunham MD Cataract, nuclear sclerotic senile, left (Primary Dx); Pseudophakia of right eye 01/14/2024 Travel 12/24/2023 9:30 AM EDT Consult [facility] [address] [place] [address] Lexx Dunham MD Cataract, nuclear [...] Description 06/10/2024 1:15 PM EST Office Visit [facility] [address] [place] [address] Lexx Dunham MD [address] [place] [address] Health Maintenance Due Date Last Done Comments [facility]- Medicare Initial Physic al (IPPE) 1955 [facility]-Depression Screening 1955 [facility]-Diabetes: Hemoglobin A1C 1955 [facility]-Hepatitis C Screening 1955 [facility]-Infant/Child/Adol SDOH Screenings 1955 [id number] Vaccine (#1) 09/02/1960 Diabetes: Dental Exam 09/02/1965 [...] Months Insurance [place] MEDICARE Care Teams Faith Healer Relationship Specialty Start Date End Date Adi Bates MD [address] [place] [address] [place] [address] PCP - General 11/08/23
--- OUTSIDE RECORDS SUMMARY | 2024-03-24 23:21 | XMS_ITS | Encounter Summary ---
Author Organization Healthcare Address [address] [id number] Care Team Providers Care Senior Software Development Engineer Name Role Phone Adi Bates MD Primary Care Provider [phone] Encounter Details Date Type Department Care Team [...] Description 06/10/2024 1:15 PM EST Office Visit [facility] [address] [place] [address] Lexx Dunham MD [address] [address] documented as of this encounter Visit Diagnoses Not on filedocumented in this encounter Additional Health Concerns Assessment Noted Time A fall risk assessment has been complete d for the patient 01/17/2024 2:33 PM EDT A Body Mass Index follow-up plan has been documented for the patient 01/17/2024 3:57 PM EDT documented as of this encounter Care Teams Senior Software Development Engineer Relationship Specialty Start Date End Date Adi Bates MD [address] [place] [address] PCP - General 11/08/23 documented as of this encounter
--- OUTSIDE RECORDS SUMMARY | 2024-03-24 23:21 | XMS_ITS | Encounter Summary ---
Author Organization [facility] Address [address] [id number] Care Team Providers Care Podiatrist Assistant Name Role Phone Adi Bates MD Primary Care Provider [phone] Encounter Details Date Type Department Care Team (Late st Contact Info) Description 01/17/2024 3:00 PM EDT Office Visit [facility] [address] [place] [address] Lexx Dunham MD [address] [address] Cataract, nuclear sclerotic senile, left [...] 22.0 D EMV ? @ 075 6-8a; [phone] Taper Pf od; stop Ofx tid od in 3d documented in this encounter Plan of Treatment Upcoming Encounters Date Type Department Care Team (Late st Contact Info) Description 06/10/2024 1:15 PM EST Office Visit [facility] [address] [facility] [place] [address] Lexx Dunham MD [address] [address] documented as of this encounter [...] documented as of this encounter Care Teams Podiatrist Assistant Relationship Specialty Start Date End Date Adi Bates MD [address] [place] [address] PCP - General 11/08/23 documented as of this encounter
--- OUTSIDE RECORDS SUMMARY | 2024-03-24 23:21 | XMS_ITS | Encounter Summary ---
Author Organization Healthcare Address [address] [place] [address] Care Team Providers Care Production Control Coordinator Name Role Phone Adi Bates MD Primary Care Provider [phone] Encounter Details Date Type Department Care Team (Late st Contact Info) Description 02/04/2024 9:45 AM EDT Office Visit [facility] [address] [place] [address] Lexx Dunham MD [address] [address] Pseudophakia, both eyes (Primary Dx) [...] Description 06/10/2024 1:15 PM EST Office Visit [facility] [address] [place] [address] Lexx Dunham MD [address] [address] documented as of this encounter [...] documented as of this encounter Care Teams Production Control Coordinator Relationship Specialty Start Date End Date Adi Bates MD [address] [place] [address] PCP - General 11/08/23 documented as of this encounter
--- OUTSIDE RECORDS SUMMARY | 2024-03-24 23:21 | XMS_ITS | Encounter Summary ---
Author Organization [facility] Address [address] [id number] Care Team Providers Care Promos Executive Producer Name Role Phone Adi Bates MD Primary Care Provider [phone] Encounter Details Date Type Department Care Team [...] Description 06/10/2024 1:15 PM EST Office Visit [facility] [address] [place] [address] Lexx Dunham MD [address] [address] documented as of this encounter Visit Diagnoses Not on filedocumented in this encounter Additional Health Concerns Assessment Noted Time A fall risk assessment has been complete d for the patient 02/12/2024 2:53 PM EDT A Body Mass Index follow-up plan has been documented for the patient 02/12/2024 3:32 PM EDT documented as of this encounter Care Teams Promos Executive Producer Relationship Specialty Start Date End Date Adi Bates MD [address] [place] [address] PCP - General 11/08/23 documented as of this encounter
--- OUTSIDE RECORDS SUMMARY | 2024-03-24 23:21 | XMS_ITS | Encounter Summary ---
Author Organization Healthcare Address [address] [id number] Care Team Providers Care Quotation Checker Name Role Phone Adi Bates MD Primary Care Provider [phone] Encounter Details Date Type Department Care Team [...] [facility] [address] [place] [address] Lexx Dunham MD [address] [address] documented as of this encounter Visit Diagnoses Not on filedocumented in this encounter Additional Health Concerns Assessment Noted Time A fall risk assessment has been complete d for the patient 01/14/2024 8:52 AM EDT A Body Mass Index follow-up plan has been documented for the patient 01/14/2024 9:18 AM EDT documented as of this encounter Care Teams Quotation Checker Relationship Specialty Start Date End Date Adi Bates MD [address] [place] [address] PCP - General 11/08/23 documented as of this encounter
--- OUTSIDE RECORDS SUMMARY | 2024-03-24 23:21 | XMS_ITS | Encounter Summary ---
Author Organization Healthcare Address [address] [id number] Care Team Providers Care Core Mounter Name Role Phone Adi Bates MD Primary Care Provider [phone] Encounter Details Date Type Department Care Team (Late st Contact Info) Description 02/12/2024 2:45 PM EDT Office Visit [facility] [address] [place] [address] Lexx Dunham MD [address] [address] Pseudophakia, both eyes (Primary Dx) [...] Description 06/10/2024 1:15 PM EST Office Visit [facility] [address] [place] [address] Lexx Dunham MD [address] [address] documented as of this encounter [...] documented as of this encounter Care Teams Core Mounter Relationship Specialty Start Date End Date Adi Bates MD [address] [place] [address] PCP - General 11/08/23 documented as of this encounter
--- OUTSIDE RECORDS SUMMARY | 2024-03-24 23:22 | XMS_ITS | Encounter Summary ---
Author Organization [facility] Address [address] [place] [address] Care Team Providers Care Roll Handler Name Role Phone Adi Bates MD Primary Care Provider [phone] Encounter Details Date Type Department Care Team [...] 06/10/2024 1:15 PM EST Office Visit [facility] [address] [place] [address] Lexx Dunham MD [address] [address] documented as of this encounter Visit Diagnoses Not on filedocumented in this encounter Additional Health Concerns Assessment Noted Time A Body Mass Index follow-up plan has been documented for the patient 11/08/2023 9:50 AM EDT documented as of this encounter Care Teams Roll Handler Relationship Specialty Start Date End Date Adi Bates MD [address] [place] [address] PCP - General 11/08/23 documented as of this encounter
--- OUTSIDE RECORDS SUMMARY | 2024-03-24 23:22 | XMS_ITS | Encounter Summary ---
Author Organization Healthcare Address [address] [id number] Care Team Providers Care Support Manager Name Role Phone Adi Bates MD Primary Care Provider [phone] Encounter Details Date Type Department Care Team (Late st Contact Info) Description 01/14/2024 9:45 AM EDT Office Visit [facility] [address] [place] [address] Lexx Dunham MD [address] [address] Cataract, nuclear sclerotic senile, [...] Description 06/10/2024 1:15 PM EST Office Visit [facility] [address] [place] [address] Lexx Dunham MD [address] [address] documented as of this [...] documented as of this encounter Care Teams Support Manager Relationship Specialty Start Date End Date Adi Bates MD [address] [facility] [place] [address] PCP - General 11/08/23 documented as of this encounter
--- OUTSIDE RECORDS SUMMARY | 2024-03-24 23:22 | XMS_ITS | Encounter Summary ---
Author Organization [facility] Address [address] [place], [place] [address] Care Team Providers Care Director Education Name Role Phone Adi Bates MD Primary Care Provider [phone] Encounter Details Date Type Department Care Team (Late st Contact Info) Description 11/08/2023 9:35 AM EDT Ancillary Procedure [facility] [address] [place] [address] Social History Tobacco Use Types [...] Description 06/10/2024 1:15 PM EST Office Visit [facility] [address] [place] [address] Lexx Dunham MD [address] [address] documented as of this encounter [...] documented as of this encounter Care Teams Director Education Relationship Specialty Start Date End Date Adi Bates MD [address] [place] [address] PCP - General 11/08/23 documented as of this encounter
--- OUTSIDE RECORDS SUMMARY | 2024-03-24 23:22 | XMS_ITS | Encounter Summary ---
Author Organization [facility] Address [address] [place] [address] Care Team Providers Care Stock Worker Name Role Phone Adi Bates MD Primary Care Provider [phone] Encounter Details Date Type Department Care Team [...] 1:15 PM EST Office Visit [facility] [address] [place] [address] Lexx Dunham MD [address] [address] documented as of this encounter Visit Diagnoses Not on filedocumented in this encounter Additional Health Concerns Assessment Noted Time A Body Mass Index follow-up plan has been documented for the patient 12/24/2023 9:54 AM EDT documented as of this encounter Care Teams Stock Worker Relationship Specialty Start Date End Date Adi Bates MD [address] [place] [address] PCP - General 11/08/23 documented as of this encounter
--- OUTSIDE RECORDS SUMMARY | 2024-03-24 23:22 | XMS_ITS | Encounter Summary ---
Author Organization [facility] Address [address] [id number] Care Team Providers Care Early Childhood Coordinator Name Role Phone Adi Bates MD Primary Care Provider [phone] Reason for Visit * Reason Comments Pre-op Exam Encounter Details Date Type Department Care Team (Late st Contact Info) Description 12/24/2023 9:30 AM EDT Consult [facility] [address] [place] [address] Lexx Dunham MD [address] [address] Cataract, nuclear sclerotic senile, right [...] gain anticipated. Select 22.5 D EMV 6-8a; [phone] documented in this encounter Plan of Treatment Upcoming Encounters Date Type Department Care Team (Late st Contact Info) Description 06/10/2024 1:15 PM EST Office Visit [facility] [address] [place] [address] Lexx Dunham MD [address] [place] [address] documented as of this encounter [...] documented as of this encounter Care Teams Early Childhood Coordinator Relationship Specialty Start Date End Date Adi Bates MD [address] [place] [address] PCP - General 11/08/23 documented as of this encounter
--- OUTSIDE RECORDS SUMMARY | 2024-03-24 23:22 | XMS_ITS | Encounter Summary ---
Author Organization [facility] Address [address] [id number] Care Team Providers Care Landcare Officer Name Role Phone Adi Bates MD Primary Care Provider [phone] Encounter Details Date Type Department Care Team (Latest Contact Info) Description 11/08/2023 9:00 AM EDT Office Visit [facility] [address] [place] [address] Lexx Dunham MD [address] [address] Mild nonproliferative diabetic retinopathy associated [...] his readers. Manifest Refraction (Auto) Sphere Cylinder [place] Right +1.25 +0.25 004 20/20 [...] Description 06/10/2024 1:15 PM EST Office Visit [facility] [address] [place] [address] Lexx Dunham MD [address] [address] documented as of this [...] documented as of this encounter Care Teams Landcare Officer Relationship Specialty Start Date End Date Adi Bates MD [address] [place] [address] PCP - General 11/08/23 documented as of this encounter
== END 2024-03-24 23:59 | disposition home or self-care (01) ==
LOC: SC.PAIN 13:39
PROVIDERS: PCP Internal Medicine; Visit Provider Nurse Practitioner Family
DX: S32.040A Wedge compression fracture of fourth lumbar vertebra, initial encounter for closed fracture (principal); M51.369 Other intervertebral disc degeneration, lumbar region without mention of lumbar back pain or lower extremity pain; M46.1 Sacroiliitis, not elsewhere classified; Z73.89 Other problems related to life management difficulty; Z79.899 Other long term (current) drug therapy; M80.08XA Age-related osteoporosis with current pathological fracture, vertebra(e), initial encounter for fracture
CPT/HCPCS: 99202; G0463

== ENCOUNTER 2024-04-02 06:47 | Outpatient (CLI) | payer MEDICARE, MEDICAID, SELFPAY ==
--- NOTE | 2024-04-02 06:49 | MR_ITS ---
FINAL REPORT TECHNIQUE: Multiplanar MR without contrast CLINICAL HISTORY: LOW BACK PAIN, COMPRESSION FX. FELL OFF LADDER 1 WEEK AGO. WORSE ON RIGHT SIDE. COMPARISON: CT dated 03/16/2024 FINDINGS: There is a mild compression fracture of T12 with marrow edema with an acute or subacute appearance. There is a moderate chronic compression fracture of L1 with post kyphoplasty changes. There is a moderate compression fracture of L4 which has progressed. Marrow edema is present indicating an acute or subacute component. Alignment is normal. T12-L1: Mild chronic retropulsion of bone from the L1 compression fracture without canal stenosis. L1-2: Mild annular disc bulge is present. L2-3: Mild annular disc bulge is present. L3-4: Mild annular disc bulges present. Mild facet overgrowth. Borderline central canal stenosis and mild neuroforaminal narrowing. L4-5: Mild to moderate annular disc bulge. Mild central canal stenosis and mild bilateral neuroforaminal narrowing. L5-S1: Mild annular disc bulge. Facet arthropathy is present with moderate neuroforaminal narrowing. IMPRESSION: Progression of L4 compression fracture which appears acute or subacute. New T12 compression fracture. Moderate diffuse degenerative changes. Reviewed, Interpreted and Dictated by Lasha Sultana MD Transcribed by Annia Smith Authenticated and [facility]
== END 2024-04-02 23:59 | disposition home or self-care (01) ==
LOC: RAD 06:47
PROVIDERS: PCP Internal Medicine; Visit Provider Nurse Practitioner Family
DX: M54.50 Low back pain, unspecified (principal); M48.56XA Collapsed vertebra, not elsewhere classified, lumbar region, initial encounter for fracture; M48.54XA Collapsed vertebra, not elsewhere classified, thoracic region, initial encounter for fracture
CPT/HCPCS: 72148

== ENCOUNTER 2024-04-29 10:23 | Outpatient (CLI) | payer MEDICARE, MEDICAID, SELFPAY ==
[2024-04-29 18:20] LABS: Microalbumin/Creatinine Ratio 30.8
[2024-04-29 18:22] LABS: Creatinine,Urine Random 90 mg/dL (Not Estab.)
[2024-04-29 18:53] LABS: Alanine Aminotransferase 41 U/L (12-78); Albumin Level 4.4 g/dl (3.5-5.0); Albumin/Globulin Ratio 1.8 (1.1-1.8); Alkaline Phosphatase 241 U/L (38-126); Anion Gap 13.5 mEq/L (5-15); Aspartate Amino Transferase 39 U/L (17-59); Bilirubin,Total 0.5 mg/dl (0.2-1.3); Blood Urea Nitrogen 21 mg/dl (9-20); Calcium 9.6 mg/dl (8.4-10.2); Carbon Dioxide 25 mmol/L (22.0-30.0); Chloride 102 mmol/L (98-107); Estimated Glomerular Filt Rate 134 ml/min (>60); GFR (African American) 162 ML/MIN (>60); Globulin 2.4 g/dL (1.3-3.2); Glucose 304 mg/dl (74-100); Potassium 4.5 mmoL/L (3.5-5.1); Sodium 136 mmol/L (136-145); Total Protein,Serum 6.8 g/dl (6.3-8.2)
[2024-04-29 19:25] LABS: Prostate Specific Ag Screen 0.4 ng/ml (0.0-4.0)
[2024-05-01 08:27] LABS: HBsAg Screen Negative (Negative); HCV Ab Non Reactive (Non Reactive); Hep A Ab, IGM Negative (Negative); Hep B Core Ab, IgM Negative (Negative)
== END 2024-04-29 23:59 | disposition home or self-care (01) ==
LOC: LAB.DROPOF 04-30 10:23
PROVIDERS: PCP Internal Medicine; Visit Provider Internal Medicine
DX: E11.9 Type 2 diabetes mellitus without complications (principal); Z00.00 Encounter for general adult medical examination without abnormal findings; R79.89 Other specified abnormal findings of blood chemistry; Z12.5 Encounter for screening for malignant neoplasm of prostate; R94.5 Abnormal results of liver function studies
CPT/HCPCS: 80053; 80074; 82043; 82570; G0103

== ENCOUNTER 2024-06-24 13:00 | Outpatient (CLI) | payer MEDICARE, MEDICAID, SELFPAY ==
[2024-06-24 20:13] LABS: Chol/HDL Ratio 2.8 (1-3.5); Cholesterol 117 mg/dl (140-200); HDL Cholesterol 42 mg/dl (40-60); Triglycerides 125 mg/dl (30-150); VLDL Cholesterol 25 mg/dL (0-40)
[2024-06-24 20:24] LABS: Direct LDL Cholesterol 54.31 mg/dL (100-129)
[2024-06-24 21:44] LABS: Hemoglobin A1C 7.5 % (4.0-6.0)
== END 2024-06-24 23:59 | disposition home or self-care (01) ==
LOC: LAB.DROPOF 06-25 11:10
PROVIDERS: PCP Internal Medicine; Visit Provider Internal Medicine
DX: R53.83 Other fatigue (principal); R79.89 Other specified abnormal findings of blood chemistry; R74.8 Abnormal levels of other serum enzymes; E11.9 Type 2 diabetes mellitus without complications
CPT/HCPCS: 80061; 83036

== ENCOUNTER 2025-02-02 08:46 | Outpatient (CLI) | payer MEDICARE, MEDICAID, SELFPAY ==
[2025-02-02 14:49] LABS: Hematocrit 41.8 % (42.0-52.0); Hemoglobin 14.5 g/dL (14.1-18.0); Immature Granulocytes % 0.3 %; Mean Corpuscular HGB Conc 34.7 g/dL (31.8-35.4); Mean Corpuscular Hemoglobin 31.0 pg (27.0-31.2); Mean Corpuscular Volume 89.5 fl (80-94); Nucleated Red Blood Cells % 0 %; Platelet Count 89 K/mm3 (142-424); Red Blood Count 4.67 M/mm3 (4.60-6.20); Red Cell Distribution Width-SD 43.0 fL; White Blood Count 3.0 K/mm3 (4.8-10.8)
[2025-02-02 14:58] LABS: Albumin Level 3.8 g/dl (3.5-5.0); Chloride 101 mmol/L (98-107); Sodium 137 mmol/L (136-145)
[2025-02-02 14:59] LABS: Potassium 4.3 mmoL/L (3.5-5.1)
[2025-02-02 15:01] LABS: Alanine Aminotransferase 33 U/L (12-78); Albumin/Globulin Ratio 1.4 (1.1-1.8); Alkaline Phosphatase 157 U/L (38-126); Anion Gap 14.3 mEq/L (5-15); Aspartate Amino Transferase 39 U/L (17-59); Bilirubin,Total 1.5 mg/dl (0.2-1.3); Blood Urea Nitrogen 18 mg/dl (9-20); Calcium 8.7 mg/dl (8.4-10.2); Carbon Dioxide 26 mmol/L (22.0-30.0); Creatinine,Serum 0.80 mg/dl (0.66-1.25); Estimated Glomerular Filt Rate 96 ml/min (>60); GFR (African American) 116 ML/MIN (>60); Globulin 2.7 g/dL (1.3-3.2); Glucose 297 mg/dl (74-100); Total Protein,Serum 6.5 g/dl (6.3-8.2)
[2025-02-02 15:05] LABS: Hemoglobin A1C 8.6 % (4.0-6.0)
--- OUTSIDE RECORDS SUMMARY | 2025-02-04 08:56 | XMS_ITS | Patient Health Record ---
Author Organization [facility] Address [address] [place] [id number] Care Team Providers Care Speech Instructor Name Role Phone Robi Figueroa Primary Care Provider Robi FIGUEROA Unavailable Unavailable Allergies Allergen (clinical drug ingredient) Drug/Non Drug Allergy documented on EMR Reaction Allergy Type Onset Date Status Substance with penicillin structure and antibacterial mechanism of action (substance) Penicillins Unknown Drug Allergy Active Reason For Referral No Information Medications Medication SIG (Take, Route, Frequency, Duration) Notes Start Date End Date Status Lisinopril 20 MG 1 tab(s) orally once a day Not-Taking Clarithromycin ER 500 MG 2 tab(s) orally once a day Not-Taking Trulicity 1.5 MG/0.5ML INJECT 1.5 MG SUBCUTANEOUSLY ONCE a WEEK DIRECTED; Duration: 28 Active Lancets 1 TID; Duration: 30 DAY(S) *Please review and pick correct strength-formula tion from [email or web address][employer]me options. If intended option is not shown, discontinue and re-order from Quick Search* 06/21/2021 Active Glimepiride 2 MG 1 tab(s) orally once a day; Duration: 90 days Active Cefuroxime Axetil 500 MG 1 tab(s) orally every 12 hours; Duration: 10 day(s) 02/20/2022 Active Zoloft 100 MG 1 tab(s) orally once daily Not-Taking Vitamin D3 50 MCG (1999 UT) 1 tab(s) orally once a day; Duration: 30 day(s) 06/20/2021 Active GLUCOMETER DIRECTED TEST QD; Duration: 30 DAY(S) *Please review for potential replacement for e-prescription and drug interaction check* 06/21/2021 Active GLUCOMETER TEST STRIPS DIRECTED TID; Duration: 30 DAY(S) *Please review for potential replacement for e-prescription and drug interaction check* 06/21/2021 Active PARoxetine HCl 20 MG 1 tab(s) orally once a day Active DURAPHEN FORTE 30 MG-1200 MG-30 MG 1 TAB(S) ORALLY Q12H *Please review for potential replacement for e-prescription and drug interaction check* Not-Taking Immunizations Vaccine Route Administration Date Status Comme nts Fluzone High Dose (65yr and older) IM Intramuscular 02/09/2022 Administered Prevnar (PCV20) IM Intramuscular 02/09/2022 Administered Tetanus Tdap-Adacel (over 7yrs) Unknown 11/03/2013 Administered Problems Problem Type SNOMED Code ICD Code Onset Dates Problem Status W/U Status Risk Notes Problem Hyperglycemia (50628450) Hyperglycemia (R73.9) Active confirmed Problem Vitamin D deficiency (33419163) Vitamin D deficiency (E55.9) Active confirmed Problem Mixed anxiety and depressive disorder (425270695) Depression with anxiety (F41.8) Active confirmed Problem Mixed hyperlipidemia (333111497) Mixed hyperlipidemia (E78.2) Active confirmed Problem Hesitancy of micturition (9540463) Hesitancy of micturition (R39.11) Active confirmed Problem Body mass index 30.00 to 34.99 (371927142712633) BMI 34.0-34.9,adult (Z68.34) Active confirmed Problem Lower urinary tract symptoms due to benign prostatic hypertrophy (44718505399004) Benign prostatic hyperplasia with lower urinary tract symptoms (N40.1) Active confirmed Problem Type II diabetes mellitus without complication (278620109) Type 2 diabetes mellitus without complication, unspecified whether usp insulin use (E11.9) Active confirmed Plan Of Treatment Pending Test Test Name Order Date Cologuard 06/14/2021 Insurance Providers Payer Name Payer Address Payer Phone Subscriber Number Group Number Insured Name Patient Relationship to Insured Coverage Start Date Coverage End Date [employer] (MEDICAR E) [address] [address] [place] [phone] [id number] Hong REY Self - patient is the insured Medical (General) History Medical History History ICD Code border line HBP kidney stones TM perforation, left Surgical History Surgery Date(Month/Year) ears Hospitalization History Reason Date(Month/Year) above
--- OUTSIDE RECORDS SUMMARY | 2025-02-04 08:56 | XMS_ITS | Clinical Summary ---
Author Organization [facility] Address [address] [place] [address] Care Team Providers Care Christian Science Nurse Name Role Phone Adi Bates MD Primary Care Provider [phone] Allergies Active Allergy Reactions Criticality Noted Date [...] Diagnosed Date Diabetes type 2, controlled 07/08/2023 Family History Medical History Relation Name Comments [...] Orientation Not on file Plan of Treatment Health Maintenance Due Date Last Done Comments [facility]-Depression Screening 1955 [facility]-Diabetes: Hemoglobin A1C 1955 [facility]-Hepatitis C Screening 1955 [facility]-Medicare Annual Wellness (AWV) 1955 [facility]-/Child/Adol SDOH Screenings 1955 Diabetes: Dental Exam 09/02/1965 [facility]- SDOH Screenings 09/02/1973 [facility]-Adult SDOH Screenings 09/02/1973 CT Colonography 09/02/2000 Colonoscopy 09/02/2000 FIT-DNA 09/02/2000 FIT 09/02/2000 FOBT 09/02/2000 Sigmoidoscopy 09/02/2000 [facility]-Colorectal Cancer Screening 09/02/2000 [facility]-Zoster Vaccines (1 of 2) 09/02/2005 [id number] Vaccine (1 - 2023- season) 2024 [facility]-Influenza Vaccine (#1) 2024 02/09/2022 [facility]-RSV Vaccine: 60+ Years o r (1 - 1-dose 75+ series) 09/02/2030 [facility]-DTaP,Tdap,and Td Vaccine s (4 - Td or Tdap) 11/20/2033 11/21/2023, 02/17/2022, 11/03/2013 [facility]-Pneumococcal Vaccine: 50 + Years Completed 02/09/2022 HPV Vaccines Aged Out No longer eligi ble based on patient's age to complete this topic [facility]-HIB Vaccines Aged Out No longer e [...] on patient's age to complete this topic Insurance [place] Care Teams Christian Science Nurse Relationship Specialty Start Date End Date Adi Bates MD [address] [place] [address] PCP - General 11/08/23
--- OUTSIDE RECORDS SUMMARY | 2025-02-04 08:56 | XMS_ITS | Clinical Summary ---
[facility] Organization [facility] Address [address] [place] [address] Care Team Providers Care Infrastructure Security Architect Name Role Phone Lexx Bowen DO Primary Care Provider [phone] Allergies Active Allergy Reactions Criticality Noted Date Comments Penicillins Swelling High 07/18/2023 TONGUE SWELLING Medications HYDROcodone-ruth ann taminophen (NORCO) 7.5-325 MG per tablet Take 1 tablet by mouth Every 8 (Eight) Hours As Needed for Moderate Pain. 4 Active lisinopril (PRINIVIL,ZESTR IL) 5 MG tablet Take 1 tablet by mouth Daily. 4 Active atorvastatin (LIPITOR) 20 MG tablet Take 1 tablet by mouth Daily. 4 Active alendronate (FOSAMAX) 10 MG tablet Take 1 tablet by mouth Daily. 4 Active cetirizine (zyrTEC) 10 MG tablet Take 1 tablet by mouth Daily As Needed for Allergies or Rhinitis. 4 Active Farxiga 10 MG tablet Take 10 mg by mouth Daily. Active Trulicity 1.5 MG/0.5ML solution auto-injector 1 (One) Time Per Week. SATURDAY LAST DOSE ON 03/30/24, WILL HOLD PRIOR TO SURGERY 4 Active fluticasone (FLONASE) 50 MCG/ACT nasal spray Administer 1 spray into the nostril(s) as directed by provider Daily As Needed for Allergies or Rhinitis. 4 Active glimepiride (AMARYL) 4 MG tablet Take 2 tablets by mouth Daily. 4 Active methocarbamol (ROBAXIN) 750 MG tablet Take 1 tablet by mouth Every 8 (Eight) Hours As Needed. for pain 4 Active PARoxetine (PAXIL) 20 MG tablet Take 1 tablet by mouth Every Morning. Active tiZANidine (ZANAFLEX) 2 MG tablet Take 1 tablet by mouth Every 8 (Eight) Hours As Needed for Muscle Spasms. 4 Active HYDROcodone-ruth ann taminophen ([place]) 7.5-325 MG per tabletIndicatio ns:Compression fracture of L4 vertebra Take 1 tablet by mouth Every 4 (Four) Hours As Needed for Moderate Pain. 30 tablet 04/06/2024 2:43 PM EST 4 Active naloxone (NARCAN) 4 MG/0.1ML nasal spray Call 911. Don't prime. [place] in 1 nostril as needed for overdose. Repeat in 2-3 minutes in other nostril if no or minimal breathing/respo nsiveness. 2 each 04/06/2024 2:43 PM EST 4 Active Active Problems No known active problems Social History Tobacco Use Types Packs/Day Years Used Date Smoking Tobacco: Never Smokeless Tobacco: Never Tobacco Cessation:Counseling Given: Not Answered Alcohol Use Standard Drinks/Week Comments Not Currently 0 (1 standard drink = 0.6 oz pur e alcohol) Abuse Screen Answer Date Recorded Feels Unsafe at Home or Work/School no 04/06/2024 Feels Threatened by Someone no 03/16 Does Anyone Try to Keep You From Having Contact with Others or Doing Things Outside Your Home? no 04/06/2024 Physical Signs of Abuse Present no 04/06/2024 Housing Stability Answer Date Recorded Current Living Arrangements home 03/16 Potentially Unsafe Housing Conditions Not on sonal e 04/06/2024 Disabilities Answer Date Recorded Difficulty Concentrating, Remembering or Making Decisions no 04/06/2024 Difficulty Managing Errands Independently no 04/06/2024 Education Answer Date Recorded Help with school or training? Not on file Preferred Language Faroese 04/02/2024 Sex and Gender Information Value Date Recorded Sex Assigned at Not on file Legal Sex Male 3:48 PM EST Gender Identity Not on file Sexual Orientation Not on file Last Filed Vital Signs Vital Sign Reading Time Taken Comments Blood Pressure 159/87 04/06/2024 3:15 PM EST Pulse 80 04/06/2024 3:15 PM EST Temperature 36.7 C (98 F) 04/06/2024 2:00 PM EST Respiratory Rate 12 04/06/2024 3:15 PM EST Oxygen Saturation 93% 04/06/2024 3:15 PM EST Inhaled Oxygen Concentration - - Weight 94.3 kg (207 lb 14.3 oz) 024 10:58 AM EST Height 170.2 cm (5' 7.01 ) 04/06/2024 1 0:58 AM EST Body Mass Index 32.55 04/06/2024 10:58 AM EST Plan of Treatment Health Maintenance Due Date Last Done Comments COVID-19 Vaccine (#1) 09/02/1960 COLOGUARD 09/02/2000 COLON CANCER SCREENING 5 YEA R SIGMOIDOSCOPY 09/02/2000 COLONOSCOPY 09/02/2000 COLORECTAL CANCER SCREENING 09/02/2000 CT COLONOGRAPHY 09/02/2000 FECAL OCCULT BLOOD TEST 09/02/2000 FIT Testing (1 year) 09/02/2000 ZOSTER VACCINE (1 of 2) 09/02/2005 ANNUAL WELLNESS VISIT 03/30/2024 HEPATITIS C SCREENING 03/30/2024 INFLUENZA VACCINE 11/13/2024 02/09/2022 TDAP/TD VACCINES (4 - Td or Tdap) 11/20/2033 11/21/2023, 02/17/2022, 11/03/2013 Pneumococcal Vaccine 50+ Completed 02/09/2022 Medical Devices Implanted Type Area Rental Boats Caretaker Device Identifier Shelf Expiration Date Model / Serial / Lot Cmt Bone Confidence/Pls Ds Kt 11cc - [id number] Implanted:Qty: 1 on 04/06/2024 by Lexx Herrera MD at [facility] Implant N/A: Spine Lumbar DEPUY SPINE 09/12/2025 [id number] / / [id number] Cmt Bone Confidence Hi Visc - [id number] Implanted:Qty: 1 on 04/06/2024 by Lexx Herrera MD at [facility] Implant N/A: Spine Lumbar DEPUY SPINE 12/13/2025 [id number] / / [id number] Insurance [facility] MEDICARE ADVANTAGE SNP Care Teams Infrastructure Security Architect Relationship Specialty Start Date End Date Lexx Bowen DO [address] [place] [phone] PCP - General Internal Medicine 04/06/24
== END 2025-02-02 23:59 ==
LOC: LAB.DROPOF 02-04 08:47
PROVIDERS: PCP Family Medicine; Visit Provider Family Medicine
DX: E11.9 Type 2 diabetes mellitus without complications (principal)
CPT/HCPCS: 80053; 83036; 85025

== ENCOUNTER 2025-02-10 09:23 | Outpatient (CLI) | payer MEDICARE, MEDICAID, SELFPAY ==
--- NOTE | 2025-02-10 09:31 | XR_ITS ---
FINAL REPORT CLINICAL HISTORY: neck pain FINDINGS: CERVICAL SPINE Six views were obtained. There is no acute fracture. There is mild disc space narrowing at C5-6. There is mild anterior osteophyte formation from C4-5 through C6-7. There is no malalignment. IMPRESSION: Degenerative changes as above. Reviewed, Interpreted and Dictated by Pablito Ravi MD Transcribed by Annia Smith Authenticated and [facility]
--- OUTSIDE RECORDS SUMMARY | 2025-02-10 09:58 | XMS_ITS | Clinical Summary ---
[facility] Address [address] [place] [address] Care Team Providers Care Soaking Room Operator Name Role Phone Lexx Bowen DO Primary Care Provider [phone] Allergies Active Allergy Reactions Criticality Noted Date [...] Muscle Spasms. 4 Active HYDROcodone-ruth ann taminophen ([place]) 7.5-325 MG per tabletIndicatio ns:Compression fracture of L4 vertebra Take 1 tablet by mouth Every 4 (Four) Hours As Needed for Moderate Pain. 30 tablet 04/06/2024 2:43 PM EST 4 Active naloxone (NARCAN) 4 MG/0.1ML nasal spray Call 911. Don't prime. [place] in 1 nostril as needed for overdose. [...] or training? Not on file Preferred Language Ukrainian 04/02/2024 Sex and Gender Information Value Date [...] Completed 02/09/2022 Medical Devices Implanted Type Area Sales Ledger Administrator Device Identifier Shelf Expiration Date Model / Serial / Lot Cmt Bone Confidence/Pls Ds Kt 11cc - [id number] Implanted:Qty: 1 on 04/06/2024 by Lexx Herrera MD at [facility] Implant N/A: Spine Lumbar DEPUY SPINE 09/12/2025 [id number] / / [id number] Cmt Bone Confidence Hi Visc - [id number] Implanted:Qty: 1 on 04/06/2024 by Lexx Herrera MD at [facility] Implant N/A: Spine Lumbar DEPUY SPINE 12/13/2025 [id number] / / [id number] Insurance [facility] MEDICARE ADVANTAGE SNP Care Teams Soaking Room Operator Relationship Specialty Start Date End Date Lexx Bowen DO [address] [place] [id number] PCP - General Internal Medicine 04/06/24
--- OUTSIDE RECORDS SUMMARY | 2025-02-10 09:58 | XMS_ITS | Clinical Summary ---
Author Organization [facility] Address [address] [place] [address] Care Team Providers Care Chemical Operator Name Role Phone Adi Bates MD Primary Care Provider [phone] Allergies Active Allergy Reactions Criticality Noted Date [...] 09/02/2000 UKY-Zoster Vaccines (1 of 2) 09/02/2005 [id number] Vaccine (1 - 2023- season) 2024 UKY-Influenza [...] topic Insurance MEDICA[place] MED[place]ARE Care Teams Chemical Operator Relationship Specialty Start Date End Date Adi Bates MD [address] [place] [id number] PCP - General 11/08/23
== END 2025-02-10 23:59 | disposition home or self-care (01) ==
LOC: RAD 09:25
PROVIDERS: PCP Family Medicine; Visit Provider Family Medicine
DX: M47.812 Spondylosis without myelopathy or radiculopathy, cervical region (principal); M81.0 Age-related osteoporosis without current pathological fracture
CPT/HCPCS: 72050

== ENCOUNTER 2025-02-22 15:16 | Outpatient (CLI) | payer MEDICARE, MEDICAID, SELFPAY ==
--- OUTSIDE RECORDS SUMMARY | 2025-02-22 15:19 | XMS_ITS | Clinical Summary ---
[facility] Address [address] [place] [address] Care Team Providers Care Stage Producer Name Role Phone Lexx Bowen DO Primary Care Provider [phone] Allergies Active Allergy Reactions Criticality Noted Date [...] Muscle Spasms. 4 Active HYDROcodone-ruth ann taminophen ([place]) 7.5-325 MG per tabletIndicatio ns:Compression fracture of L4 vertebra Take 1 tablet by mouth Every 4 (Four) Hours As Needed for Moderate Pain. 30 tablet 04/06/2024 2:43 PM EST 4 Active naloxone (NARCAN) 4 MG/0.1ML nasal spray Call 911. Don't prime. [place] in 1 nostril as needed for overdose. [...] or training? Not on file Preferred Language Guamanian 04/02/2024 Sex and Gender Information Value Date [...] Completed 02/09/2022 Medical Devices Implanted Type Area Cushion Gum Applicator Device Identifier Shelf Expiration Date Model / Serial / Lot Cmt Bone Confidence/Pls Ds Kt 11cc - [id number] Implanted:Qty: 1 on 04/06/2024 by Lexx Herrera MD at [facility] Implant N/A: Spine Lumbar DEPUY SPINE 09/12/2025 [id number] / / [id number] Cmt Bone Confidence Hi Visc - [id number] Implanted:Qty: 1 on 04/06/2024 by Lexx Herrera MD at [facility] Implant N/A: Spine Lumbar DEPUY SPINE 12/13/2025 [id number] / / [id number] Insurance [facility] MEDICARE ADVANTAGE SNP Care Teams Stage Producer Relationship Specialty Start Date End Date Lexx Bowen DO [address] [place] [phone] PCP - General Internal Medicine 04/06/24
--- OUTSIDE RECORDS SUMMARY | 2025-02-22 15:19 | XMS_ITS | Clinical Summary ---
Author Organization [facility] Address [address] [place] [address] Care Team Providers Care Cook Vacuum Kettle Name Role Phone Adi Bates MD Primary Care Provider [phone] Allergies Active Allergy Reactions Criticality Noted Date [...] 09/02/2000 UKY-Zoster Vaccines (1 of 2) 09/02/2005 [id number] Vaccine (1 - 2023- season) 2024 UKY-Influenza [...] topic Insurance [place] Care Teams Cook Vacuum Kettle Relationship Specialty Start Date End Date Adi Bates MD [address] [place] [phone] PCP - General 11/08/23
--- NOTE | 2025-02-22 15:30 | MR_ITS ---
FINAL REPORT CLINICAL HISTORY: neck pain that radiates FINDINGS: MRI CERVICAL SPINE, WITHOUT AND WITH CONTRAST TECHNIQUE: Multiplanar MR without and with contrast administration. FINDINGS: No fracture is present. There is mild retrolisthesis of C5 on 6 measuring 3 mm. The cervical spinal cord shows normal signal and contour. No abnormal enhancement is present. C2-C3: No significant disc disease is present. There is no canal stenosis. C3-C4: Small central disc protrusion without canal stenosis. C4-C5: Tiny central disc protrusion. Mild facet overgrowth. C5-C6: Moderate annular disc bulge and endplate spurring. Facet overgrowth. Borderline central canal stenosis and moderate bilateral neuroforaminal narrowing. C6-C7: Moderate annular disc bulge and mild facet overgrowth. Borderline central canal stenosis. Mild right and moderate left neuroforaminal narrowing. C7-T1: No significant disc disease is present. There is no canal stenosis. IMPRESSION: Multilevel degenerative disc disease, most pronounced at C5-6 and C6-7. Reviewed, Interpreted and Dictated by Lasha Sultana MD Transcribed by Annia Smith Authenticated and [facility]
[2025-02-22] MEDS: GADOTERIDOL INJ 20ML SYRINGE 20 ML IV (16:19)
[2025-02-22] MEDS: SODIUM CHLORIDE 0.9% 10ML SYR (RAD ONLY) 10 ML IV (16:19)
== END 2025-02-22 23:59 | disposition home or self-care (01) ==
LOC: RAD 15:17
PROVIDERS: PCP Family Medicine; Visit Provider Family Medicine
DX: M50.322 Other cervical disc degeneration at C5-C6 level (principal); M50.323 Other cervical disc degeneration at C6-C7 level; M54.50 Low back pain, unspecified
CPT/HCPCS: 72156; A9576

== ENCOUNTER 2025-03-24 14:06 | Outpatient (CLI) | payer MEDICARE, MEDICAID, SELFPAY ==
[2025-03-24 20:46] LABS: Hematocrit 43.3 % (42.0-52.0); Hemoglobin 15.1 g/dL (14.1-18.0); Immature Granulocytes % 0.3 %; Mean Corpuscular HGB Conc 34.9 g/dL (31.8-35.4); Mean Corpuscular Hemoglobin 31.6 pg (27.0-31.2); Mean Corpuscular Volume 90.6 fl (80-94); Nucleated Red Blood Cells % 0 %; Platelet Count 85 K/mm3 (142-424); Red Blood Count 4.78 M/mm3 (4.60-6.20); Red Cell Distribution Width-SD 42.6 fL; White Blood Count 3.8 K/mm3 (4.8-10.8)
[2025-03-24 22:02] LABS: Alanine Aminotransferase 38 U/L (12-78); Albumin Level 4.6 g/dl (3.5-5.0); Albumin/Globulin Ratio 1.6 (1.1-1.8); Alkaline Phosphatase 152 U/L (38-126); Amylase 38 U/L (30-110); Anion Gap 17.7 mEq/L (5-15); Aspartate Amino Transferase 44 U/L (17-59); Bilirubin,Total 1.7 mg/dl (0.2-1.3); Blood Urea Nitrogen 12 mg/dl (9-20); Calcium 9.2 mg/dl (8.4-10.2); Carbon Dioxide 26 mmol/L (22.0-30.0); Chloride 100 mmol/L (98-107); Creatinine,Serum 0.70 mg/dl (0.66-1.25); Estimated Glomerular Filt Rate 112 ml/min (>60); GFR (African American) 135 ML/MIN (>60); Globulin 2.9 g/dL (1.3-3.2); Glucose 208 mg/dl (74-100); Lipase 41 U/L (23-300); Potassium 4.7 mmoL/L (3.5-5.1); Sodium 139 mmol/L (136-145); Total Protein,Serum 7.5 g/dl (6.3-8.2)
[2025-03-24 22:08] LABS: C-Reactive Protein 1.5 mg/L (0-4)
== END 2025-03-24 23:59 ==
LOC: LAB.DROPOF 03-26 10:26
PROVIDERS: PCP Student in an Organized Health Care Education/Training Program; Visit Provider Family Medicine
DX: D72.829 Elevated white blood cell count, unspecified (principal); E11.8 Type 2 diabetes mellitus with unspecified complications; R10.9 Unspecified abdominal pain
CPT/HCPCS: 80053; 82150; 83690; 85025; 86140